=== PATIENT | female | born 1970 | race Caucasian/White ===

== ENCOUNTER → 2019-08-25 14:12 | Outpatient (BNVA) | payer BC, SELFPAY | PROVIDERS: Family Provider Family Medicine; PCP Family Medicine; Visit Provider Nurse Practitioner Family | DX: M54.9 Dorsalgia, unspecified (principal); N39.0 Urinary tract infection, site not specified | CPT/HCPCS: 81003 ==

== ENCOUNTER → 2020-01-09 13:07 | Outpatient (BNVA) | payer BC, SELFPAY | PROVIDERS: Family Provider Family Medicine; PCP Family Medicine; Visit Provider Nurse Practitioner Women's Health | DX: D64.9 Anemia, unspecified (principal); D25.9 Leiomyoma of uterus, unspecified; N93.9 Abnormal uterine and vaginal bleeding, unspecified | CPT/HCPCS: 82728; 82746; 83550; 85025 ==

== ENCOUNTER → 2020-01-12 08:56 | Outpatient (BNVA) | payer BC, SELFPAY | PROVIDERS: Family Provider Family Medicine; PCP Family Medicine; Visit Provider Nurse Practitioner Women's Health | DX: D25.9 Leiomyoma of uterus, unspecified (principal); N88.8 Other specified noninflammatory disorders of cervix uteri | CPT/HCPCS: 76830 ==

== ENCOUNTER 2020-11-12 14:41 | Outpatient (CLI) | payer BC, SELFPAY ==
--- NOTE | 2020-11-12 14:45 | MM_ITS ---
WS: [id number] BILATERAL SCREENING DIGITAL MAMMOGRAM WITH CAD HISTORY: SCREENING COMPARISON: 11/23/2017 and 04/20/2016 Bilateral CC and MLO views submitted. Computer aided detection analyzed. Breast composition: There are scattered areas of fibroglandular density. No suspicious masses, microc alcifications or architectural distortion. MM/[place] [id number] IMPRESSION: BI-RADS: 1-Negative FOLLOW UP: 1 Year Follow-up
== END 2020-11-12 14:42 | disposition home or self-care (01) ==
LOC: RADSHAW 14:44
PROVIDERS: Family Provider Family Medicine; PCP Family Medicine; Visit Provider Family Medicine
DX: Z12.31 Encounter for screening mammogram for malignant neoplasm of breast (principal)
CPT/HCPCS: 77067

== ENCOUNTER 2021-07-08 12:09 | Emergency (ER) | payer OTHER, SELFPAY ==
[2021-07-08 12:10] VITALS: BP 192/114; PULSE 62; RESP 18; TEMP 36.2; O2SAT 100; BMI 29.7
--- NOTE | 2021-07-08 12:34 | ECG_ITS ---
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 Measurements Intervals [place] Rate: 58 P: 2 WI: 162 QRS: 29 QRSD: 83 T: 56 QT: 430 QTc: 425 Interpretive Statements SINUS BRADYCARDIA LEFT VENTRICULAR HYPERTROPHY AND ST-T CHANGE [VOLTAGE CRITERIA PLUS ST/T ABNORMALITY] No previous ECG available for comparison Electronically Signed On 07-08-2021 20:55:34 FUND DIRECTOR by Avelino Richardson M.D. [email or web address] TechSandman D&Rohiohealth mansfield hospitalVital Vio/store/NU/[id number] f
--- NOTE | 2021-07-08 12:34 | XR_ITS ---
WS: [id number] Exam: XR chest 1V portable [id number] Date/Time of Exam: 07/08/2021 12:37 PM Reason For Exam: cp Comparison 09/20/2009. Findings: The lungs are clear and fully expanded. Costophrenic angles are sharp. No infiltrates. Bronchovascula r relief appears normal. Cardiac silhouette is unremarkable. Bony elements are intact. XR/XR chest 1V portable [id number] IMPRESSION: Unremarkable chest radiograph.
--- NOTE | 2021-07-08 12:37 | ED_ITS ---
Documented by User: TEGAN Moe 07/09/21 07:00 HPI - Chest Pain General: Chief Complaint: Chest Pain Stated Complaint: CP WITH HIGH BP Time Seen by Provider: 07/08/21 15:26 History of Present Illness: HPI narrative: Patient states she is having some burning on her mid chest goes up into her throat. Says has been going on since this weekend. She states she also has a cough. Was tested negative for COVID earlier today. Patient says she has a history of hypertension her blood pressures have been staying elevated lately. Patient says she feels very fatigued. Denies any heaviness or pain arm or neck. Does not feel shortness of breath though. States she never had a problem with reflux. Patient is in no acute distress presently. Associated symptoms: Reports abdominal pain; Deny dyspnea, fever(s), nausea or vomiting Review of Systems Const: Denies: fever(s), chills or body aches Eyes: Denies: change in vision or blurry vision ENMT: Denies: throat pain or nasal congestion Card: Reports: chest pain (possible reflux, BPs have been high for a while bottom numbers seems to a h); Denies: irregular heart rhythm or dyspnea on exertion Resp: Denies: dyspnea, productive cough or non-productive cough GI: Reports: abdominal pain; Denies: nausea or vomiting Musc: Denies: extremity pain Skin/Breast: Denies: rash Neuro: Denies: headache(s) Psych: Denies: anxiety or depression Luca/Lymph: Denies: easy bruising PFSH ED PFSH: Medical History (Updated 07/08/21 @ 15:26 by TEGAN Moe) GERD (gastroesophageal reflux disease) Uterine hypertrophy Surgical History (Updated 01/09/20 @ 17:41 by Nithya Raya APN, CHERRI) H/O tubal ligation (1992) History of appendectomy (2009) Family History Family/Other Breast cancer Maternal aunt Colon cancer Maternal aunt History of kidney cancer Maternal aunt Diabetes Paternal aunt Mother Cervical cancer History of kidney cancer Hypertension Father Lung cancer Hypertension Denies family history of Hyperlipidemia Family history of thyroid problem Stroke Social History (Updated 01/09/20 @ 17:44 by Nithya Raya APN, CHERRI) Additional social history: Tobacco use: Denies Alcohol use: Denies Drug use: Denies Female Reproductive History: Date of last menstrual period: 06/14/21 Physical Exam Const: COMMON NORMALS: no acute distress, average body habitus and patient oriented x3 HENMT: COMMON NORMALS: normocephalic HEAD & SCALP: normal to inspection and normocephalic FACE & SINUS: normal facial exam Eye: COMMON NORMALS: conjunctivae normal GENERAL EYE: appearance normal, both eyes and all related structures CONJUNCTIVA: Yes conjunctivae normal Neck/C-Spine: COMMON NORMALS: no JVD Chest: COMMONS NORMALS: normal inspection of the chest Resp: COMMON NORMALS: normal respiratory effort Cardio: COMMON NORMALS: no JVD, regular rate and regular rhythm RATE: regular rate RHYTHM: regular rhythm GI: COMMON NORMALS: Normal to inspection, nondistended, normoactive bowel sounds present Extremity: COMMON NORMALS: normal to inspection and full ROM Neuro: COMMON NORMALS: patient oriented x3 Course Vital Signs: Vital signs: Vital Signs Temperature 97.1 F L 07/08/21 12:10 Pulse Rate 55 L 07/08/21 15:32 Respiratory Rate 16 07/08/21 15:32 Blood Pressure 186/96 07/08/21 15:32 Pulse Oximetry 99 07/08/21 15:32 MDM - Chest Pain MDM Narrative: Medical decision making narrative: Brief history and physical exam was performed as part of the triage process. Due to current ED wait time patient will be placed in waiting room until a room becomes available. Explained to patient he/she will be seen in order of severity. Patient is currently safe to wait in the waiting room until we can get them placed. Patient informed that if condition worsens at any time to please let the front desk representative know. I visited with patient throughout stay in the waiting room. Checked on her hourly. Laboratory studies come back at negative for any concerning findings. EKG was normal. Chest x-ray was normal. Blood pressure came down. GI cocktail was beneficial for discomfort. I discussed with patient her blood pressure readings which was her highest concern. Patient would like to stop hydrochlorothiazide and try another medication for her blood pressure control. Patient will also be started Nexium to help with possible GERD. Patient is looking for a new primary care provider also at this time. I instructed her to follow-up with a primary care provider within the next week or 2 to improve sent readings to them. Also instructed if she had continued chest pain and worsening chest pain that she should return here Lab Data: Labs: Lab Results 07/08/21 07/08/21 07/08/21 14:10 14:10 14:10 WBC 9.7 10^3/uL 10^3/ uL (4.0-10.0) RBC 5.00 10^6/uL 10^6 /uL (4.1-5.3) Hgb 13.6 g/dL g/dL (11.5-15.3) Hct 42.6 % % (37.0-47.0) MCV 85.2 fl fl (81-99) MCH 27.2 pg L pg (28.0-34.0) MCHC 31.9 g/dL g/dL (30.0-36.0) RDW 12.8 % % (12.1-15.1) Plt Count 266 10^3/cmm 10^3 /cmm (130-400) MPV 10.9 fL H fL (7.4-10.4) Neut % (Auto) 62.8 % % Lymph % (Auto) 31.0 % % Tyler % (Auto) 4.5 % % Eos % (Auto) 0.8 % % Baso % (Auto) 0.5 % % Neut # (Auto) 6.09 10^3/uL 10^3 /uL (1.8-7.7) Lymph # (Auto) 3.0 10^3/uL 10^3/ uL (0.8-4.8) Tyler # (Auto) 0.4 10^3/uL 10^3/ uL (0.2-0.9) Eos # (Auto) 0.1 10^3/uL 10^3/ uL (0.0-0.8) Baso # (Auto) 0.1 10^3/uL 10^3/ uL (0.0-0.1) Nucleated RBC % (a uto) 0 % % Nucleated RBCs # 0.0 /100WBC /100W BC PT 12.40 SECONDS SEC ONDS (12.1-14.9) INR 0.90 (0.8-1.2) Sodium 140 mmol/L mmol/L (136-145) Potassium 3.7 mmol/L mmol/L (3.5-5.1) Chloride 102 mmol/L mmol/L (98-107) Carbon Dioxide 26 mmol/L mmol/L (22-29) Anion Gap 15.7 (5-19) BUN 12 mg/dL mg/dL (6-20) Creatinine 0.6 mg/dL mg/dL (0.5-0.9) GFR Calculation 105.8 mL/min mL/m in (90-130) Glucose 92 mg/dL mg/dL (65-115) Calculated Osmolal ity 289 mOsm/kg mOsm/ kg (285-295) Calcium 9.0 mg/dL mg/dL (8.5-10.5) Total Bilirubin 0.4 mg/dL mg/dL (0.15-1.2) AST 14 U/L U/L (0-32) ALT 17 U/L U/L (0-33) Alkaline Phosphata se 119 IU/L H IU/L (35-105) Troponin T Baselin e Total Protein 7.2 g/dL g/dL (6.6-8.7) Albumin 4.6 g/dL g/dL (3.5-5.2) Globulin 2.6 g/dL g/dL (1.3-4.6) 07/08/21 14:10 WBC RBC Hgb Hct MCV MCH MCHC RDW Plt Count MPV Neut % (Auto) Lymph % (Auto) Tyler % (Auto) Eos % (Auto) Baso % (Auto) Neut # (Auto) Lymph # (Auto) Tyler # (Auto) Eos # (Auto) Baso # (Auto) Nucleated RBC % (a uto) Nucleated RBCs # PT INR Sodium Potassium Chloride Carbon Dioxide Anion Gap BUN Creatinine GFR Calculation Glucose Calculated Osmolal ity Calcium Total Bilirubin AST ALT Alkaline Phosphata se Troponin T Baselin e 6 ng/L ng/L (0-10) Total Protein Albumin Globulin Discharge Plan Discharge Patient Disposition: Home Clinical Impression: Atypical chest pain Hypertension Qualifiers: Hypertension type: primary hypertension Qualified Code(s): I10 - Essential (primary) hypertension Condition: Stable Prescriptions: New Micardis 40 mg tablet 40 mg PO DAILY Qty: 30 RF: 0 Tagamet HB 200 mg tablet 200 mg PO BID Qty: 60 RF: 0 No Action metoprolol succinate 100 mg tablet extended release 24 hr 100 mg PO DAILY RF: 0 hydrochlorothiazide 12.5 mg capsule 12.5 mg PO DAILY RF: 0 potassium chloride 10 mEq capsule, extended release 10 meq PO DAILY RF: 0 ferrous sulfate 325 mg (65 mg iron) tablet 325 mg PO DAILY RF: 0 norethindrone acetate 5 mg tablet 5 mg PO DAILY Qty: 90 RF: 1 Discharge Orders: Discharge ED (Routine); Ordered 07/08/21 Ordered By: Rebel Lozoya Referrals: Edilia Vega MD [Primary Care Provider] - Discharge Diet: As Directed Discharge Activity: Increase activity as tolerated Patient Instructions: Chest Pain (ED), GERD (Gastroesophageal Reflux Disease) (ED), Hypertension (ED) Activity Restrictions/Additional Instructions: Follow-up with medical provider as directed. Take medications as prescribed. Return to the ER or your medical provider if condition worsens. Please read and understand discharge instructions. If any questions ask please. I suggest stopping your hydrochlorothiazide and potassium. Check blood pressures twice a day. Stay away from my high-fat greasy diet. Coding Level of Care Code ED Assistant Basketball Coach for Chg Fwd Exam Comprehensive Documented by User: José Mora DO 07/09/21 15:55 HPI - Chest Pain General: Chief Complaint: Chest Pain Stated Complaint: CP WITH HIGH BP Time Seen by Provider: 07/08/21 15:26 [facility] ED PFSH: Medical History (Updated 07/08/21 @ 15:26 by TEGAN Moe) GERD (gastroesophageal reflux disease) Uterine hypertrophy Surgical History (Updated 01/09/20 @ 17:41 by Nithya Raya APN, CHERRI) H/O tubal ligation (1992) History of appendectomy (2009) Family History Family/Other Breast cancer Maternal aunt Colon cancer Maternal aunt History of kidney cancer Maternal aunt Diabetes Paternal aunt Mother Cervical cancer History of kidney cancer Hypertension Father Lung cancer Hypertension Denies family history of Hyperlipidemia Family history of thyroid problem Stroke Social History (Updated 01/09/20 @ 17:44 by Nithya Raya APN, CHERRI) Additional social history: Tobacco use: Denies Alcohol use: Denies Drug use: Denies Course Vital Signs: Vital signs: Vital Signs Temperature 97.1 F L 07/08/21 12:10 Pulse Rate 55 L 07/08/21 15:32 Respiratory Rate 16 07/08/21 15:32 Blood Pressure 186/96 07/08/21 15:32 Pulse Oximetry 99 07/08/21 15:32 MDM - Chest Pain MDM Narrative: Medical decision making narrative: Chart reviewed and patient discussed with midlevel. Agree with assessment and plan. Lab Data: Labs: Lab Results 07/08/21 07/08/21 07/08/21 14:10 14:10 14:10 WBC 9.7 10^3/uL 10^3/ uL (4.0-10.0) RBC 5.00 10^6/uL 10^6 /uL (4.1-5.3) Hgb 13.6 g/dL g/dL (11.5-15.3) Hct 42.6 % % (37.0-47.0) MCV 85.2 fl fl (81-99) MCH 27.2 pg L pg (28.0-34.0) MCHC 31.9 g/dL g/dL (30.0-36.0) RDW 12.8 % % (12.1-15.1) Plt Count 266 10^3/cmm 10^3 /cmm (130-400) MPV 10.9 fL H fL (7.4-10.4) Neut % (Auto) 62.8 % % Lymph % (Auto) 31.0 % % Tyler % (Auto) 4.5 % % Eos % (Auto) 0.8 % % Baso % (Auto) 0.5 % % Neut # (Auto) 6.09 10^3/uL 10^3 /uL (1.8-7.7) Lymph # (Auto) 3.0 10^3/uL 10^3/ uL (0.8-4.8) Tyler # (Auto) 0.4 10^3/uL 10^3/ uL (0.2-0.9) Eos # (Auto) 0.1 10^3/uL 10^3/ uL (0.0-0.8) Baso # (Auto) 0.1 10^3/uL 10^3/ uL (0.0-0.1) Nucleated RBC % (a uto) 0 % % Nucleated RBCs # 0.0 /100WBC /100W BC PT 12.40 SECONDS SEC ONDS (12.1-14.9) INR 0.90 (0.8-1.2) Sodium 140 mmol/L mmol/L (136-145) Potassium 3.7 mmol/L mmol/L (3.5-5.1) Chloride 102 mmol/L mmol/L (98-107) Carbon Dioxide 26 mmol/L mmol/L (22-29) Anion Gap 15.7 (5-19) BUN 12 mg/dL mg/dL (6-20) Creatinine 0.6 mg/dL mg/dL (0.5-0.9) GFR Calculation 105.8 mL/min mL/m in (90-130) Glucose 92 mg/dL mg/dL (65-115) Calculated Osmolal ity 289 mOsm/kg mOsm/ kg (285-295) Calcium 9.0 mg/dL mg/dL (8.5-10.5) Total Bilirubin 0.4 mg/dL mg/dL (0.15-1.2) AST 14 U/L U/L (0-32) ALT 17 U/L U/L (0-33) Alkaline Phosphata se 119 IU/L H IU/L (35-105) Troponin T Baselin e Total Protein 7.2 g/dL g/dL (6.6-8.7) Albumin 4.6 g/dL g/dL (3.5-5.2) Globulin 2.6 g/dL g/dL (1.3-4.6) 07/08/21 14:10 WBC RBC Hgb Hct MCV MCH MCHC RDW Plt Count MPV Neut % (Auto) Lymph % (Auto) Tyler % (Auto) Eos % (Auto) Baso % (Auto) Neut # (Auto) Lymph # (Auto) Tyler # (Auto) Eos # (Auto) Baso # (Auto) Nucleated RBC % (a uto) Nucleated RBCs # PT INR Sodium Potassium Chloride Carbon Dioxide Anion Gap BUN Creatinine GFR Calculation Glucose Calculated Osmolal ity Calcium Total Bilirubin AST ALT Alkaline Phosphata se Troponin T Baselin e 6 ng/L ng/L (0-10) Total Protein Albumin Globulin Discharge Plan Discharge Patient Disposition: Home Clinical Impression: Atypical chest pain Hypertension Qualifiers: Hypertension type: primary hypertension Qualified Code(s): I10 - Essential (primary) hypertension Condition: Stable Prescriptions: New Micardis 40 mg tablet 40 mg PO DAILY Qty: 30 RF: 0 Tagamet HB 200 mg tablet 200 mg PO BID Qty: 60 RF: 0 No Action metoprolol succinate 100 mg tablet extended release 24 hr 100 mg PO DAILY RF: 0 hydrochlorothiazide 12.5 mg capsule 12.5 mg PO DAILY RF: 0 potassium chloride 10 mEq capsule, extended release 10 meq PO DAILY RF: 0 ferrous sulfate 325 mg (65 mg iron) tablet 325 mg PO DAILY RF: 0 norethindrone acetate 5 mg tablet 5 mg PO DAILY Qty: 90 RF: 1 Discharge Orders: Discharge ED (Routine); Ordered 07/08/21 Ordered By: Rebel Lozoya Referrals: Edilia Vega MD [Primary Care Provider] - Discharge Diet: As Directed Discharge Activity: Increase activity as tolerated Patient Instructions: Chest Pain (ED), GERD (Gastroesophageal Reflux Disease) (ED), Hypertension (ED) Activity Restrictions/Additional Instructions: Follow-up with medical provider as directed. Take medications as prescribed. Return to the ER or your medical provider if condition worsens. Please read and understand discharge instructions. If any questions ask please. I suggest stopping your hydrochlorothiazide and potassium. Check blood pressures twice a day. Stay away from my high-fat greasy diet. Coding Level of Care Code ED Assistant Basketball Coach for Chg Fwd Exam Comprehensive
[2021-07-08 14:26] LABS: Basophils # 0.1 10^3/uL (0.0-0.1); Basophils % 0.5 %; Eosinophils # 0.1 10^3/uL (0.0-0.8); Eosinophils % 0.8 %; Hematocrit 42.6 % (37.0-47.0); Hemoglobin 13.6 g/dL (11.5-15.3); Mean Corpuscular HGB Conc 31.9 g/dL (30.0-36.0); Mean Corpuscular Hemoglobin 27.2 pg (28.0-34.0); Mean Corpuscular Volume 85.2 fl (81-99); Mean Platelet Volume 10.9 fL (7.4-10.4); Monocytes # 0.4 10^3/uL (0.2-0.9); Monocytes % 4.5 %; Neutrophils # 6.09 10^3/uL (1.8-7.7); Neutrophils % 62.8 %; Nucleated Red Blood Cells % 0 %; Platelet Count 266 10^3/cmm (130-400); Red Cell Distribution Width 12.8 % (12.1-15.1); White Blood Count 9.7 10^3/uL (4.0-10.0)
[2021-07-08 15:04] LABS: Alanine Aminotransferase 17 U/L (0-33); Albumin Level 4.6 g/dL (3.5-5.2); Alkaline Phosphatase 119 IU/L (35-105); Anion Gap 15.7 (5-19); Aspartate Amino Transferase 14 U/L (0-32); Blood Urea Nitrogen 12 mg/dL (6-20); Carbon Dioxide 26 mmol/L (22-29); Chloride 102 mmol/L (98-107); Globulin 2.6 g/dL (1.3-4.6); Glomerular Filtration Rate 105.8 mL/min (90-130); Glucose 92 mg/dL (65-115); Osmolality Calculated 289 mOsm/kg (285-295); Potassium 3.7 mmol/L (3.5-5.1); Sodium 140 mmol/L (136-145); Total Bilirubin 0.4 mg/dL (0.15-1.2); Total Protein 7.2 g/dL (6.6-8.7)
[2021-07-08 15:05] LABS: Troponin(5th) Baseline 6 ng/L (0-10)
[2021-07-08] MEDS: lidocaine 2% viscous 15 ML, aluminum-mag hydrox-simethicon 30 ML, sucralfate oral liq 1 GM PO (15:17)
[2021-07-08 15:32] VITALS: BP 186/96; PULSE 55; RESP 16; O2SAT 99
== END 2021-07-08 15:52 | disposition home or self-care (01) ==
PROVIDERS: Emergency Provider Nurse Practitioner Family; PCP Family Medicine
DX: R07.89 Other chest pain (principal); I10 Essential (primary) hypertension
CPT/HCPCS: 71045; 80053; 84484; 85025; 85610; 93005; 99283

== ENCOUNTER → 2021-09-08 16:01 | Outpatient (BNVA) | payer OTHER, SELFPAY | PROVIDERS: PCP Nurse Practitioner Family; Visit Provider Nurse Practitioner Family | DX: I10 Essential (primary) hypertension (principal); Z13.1 Encounter for screening for diabetes mellitus | CPT/HCPCS: 80053; 84439; 84443 ==

== ENCOUNTER 2021-09-30 10:35 | Outpatient (CLI) | payer OTHER, SELFPAY ==
--- NOTE | 2021-09-30 11:00 | US_ITS ---
WS: [id number] RENAL ULTRASOUND HISTORY: Hypertension COMPARISON: None available. TECHNIQUE: 2-D and color Doppler imaging of the kidney submitted. Right kidney: 10.0 cm x 5.4 cm x 3.8 cm. Normal echogenicity with no hydronephrosis or mass. Left kidney: 10.0 cm x 4.6 cm x 4.2 cm. Normal echogenicity with no hydronephrosis or mass. Aorta: Normal. Urinary Bladder: Minimal distention. US/US renal BI* [id number] IMPRESSION: Normal renal ultrasound.
== END 2021-09-30 10:36 | disposition home or self-care (01) ==
PROVIDERS: PCP Nurse Practitioner Family; Visit Provider Nurse Practitioner Family
DX: I10 Essential (primary) hypertension (principal)
CPT/HCPCS: 76770

== ENCOUNTER → 2021-11-12 14:26 | Outpatient (BNVA) | payer OTHER, SELFPAY | PROVIDERS: PCP Nurse Practitioner Family; Visit Provider Nurse Practitioner Family | DX: I10 Essential (primary) hypertension (principal); R20.2 Paresthesia of skin; Z13.1 Encounter for screening for diabetes mellitus; D50.9 Iron deficiency anemia, unspecified; Z12.11 Encounter for screening for malignant neoplasm of colon; Z12.4 Encounter for screening for malignant neoplasm of cervix; D64.9 Anemia, unspecified; D25.9 Leiomyoma of uterus, unspecified; N93.9 Abnormal uterine and vaginal bleeding, unspecified | CPT/HCPCS: 80053; 82607; 82728; 82746; 83550; 83735; 85025 ==

== ENCOUNTER 2021-12-08 05:52 | Day surgery (SDC) | payer OTHER, SELFPAY ==
[2021-12-04 11:30] VITALS: BMI 28.7
[2021-12-08 06:45] VITALS: BP 145/89; PULSE 49; RESP 16; TEMP 36.8; O2SAT 98
[2021-12-08] MEDS: sodium chloride 0.9% 1,000 ML 30 ML IV (06:48)
[2021-12-08 06:56] LABS: OR HCG Qualitative Urine Negative (Negative)
--- NOTE | 2021-12-08 06:57 | ANES.PREANE2 ---
Pre-Anesthetic Assessment Height/Weight: Height 1.6 m Weight 73.482 kg Temp Pulse Resp BP Pulse Ox 98.3 F 49 L 16 145/89 98 12/08/21 06:45 12/08/21 06:45 12/08/21 06:45 12/08/21 06:45 12/08/21 06:45 Preop Diagnosis: screening Operation Date: 12/08/21 07:30 Proposed Procedures p Colonoscopy 25424,Z12.11(Not Applicable) - Salvatore Dunn MD Familial anesthetic complications: None Was Beta Shannon taken within 24 hours: Yes Was Clonidine taken within 24 hours: N/A Last intake: Intake Last Liquid Date 12/07/21 Last Liquid Time 22:30 Last Solid Date 12/06/21 Last Solid Time 22:30 Social Alcohol (s) and No tobacco Exam alert, oriented x 3, clear to auscultation bilaterally and regular rate & rhythm Airway Submandibular: within normal limits Cervical ROM: within normal limits Mallampati: Class II Dentition: chipped and full History/ROS Other Pulmonary None reported CV/HEM Anemia and Hypertension None reported Hepatic None reported GI None reported Metabolic None reported Musc/skel None reported Neuropsych Headache Anesthetic Plan Anesthesia: MAC Risk of > 500 ml blood loss (7ml/kg in children): No Medications/Allergies Home Medications Medication Instructions Recorded Confirmed Last Taken Type hydrochlorothiazide 25 mg tablet 12.5 mg PO QAM #30 tab 11/12/21 12/04/21 12/07/21 Rx meloxicam 7.5 mg tablet (Mobic) 7.5 mg PO DAILY #30 tab 11/12/21 12/04/21 Unknown Rx metoprolol succinate 100 mg 100 mg PO DAILY #30 tab 11/12/21 12/08/21 12/08/21 Rx tablet,extended release 24 hr telmisartan 80 mg tablet 80 mg PO BID #60 tab 11/12/21 12/04/21 12/07/21 Rx ferrous gluconate 324 mg (37.5 mg 324 mg PO DAILY #30 tab 11/18/21 12/04/21 12/07/21 Rx iron) tablet Allergies Allergy/AdvReac Type Severity Reaction Status Date / Time No Known Allergies Allergy Verified 09/08/21 14:49 Current Medications Generic Name Dose Route Start Last Admin Trade Name Freq PRN Reason Stop Dose Admin Sodium Chloride 1,000 mls @ 30 mls/hr 12/08/21 06:00 12/08/21 06:48 Sodium Chloride 0.9% IV 12/09/21 05:59 30 mls/hr .Q24H JEANNETTE Administration PFSH Anesthesia Medical History GERD (gastroesophageal reflux disease) Uterine hypertrophy Surgical History H/O tubal ligation (1992) History of appendectomy (2009) Family History Family/Other Breast cancer Maternal aunt Colon cancer Maternal aunt History of kidney cancer Maternal aunt Diabetes Paternal aunt Mother Cervical cancer History of kidney cancer Hypertension Father Lung cancer Hypertension Denies family history of Hyperlipidemia Family history of thyroid problem Stroke Social History Additional social history: Tobacco use: Denies Alcohol use: Denies Drug use: Denies Female Reproductive History Date of last menstrual period: 06/14/21 Data Anesthesia Cardiac Studies: No Data to Display
--- NOTE | 2021-12-08 07:16 | W.PM.OPSFHP ---
Same Day Surgery H&P Indication for Procedure/HPI DATE OF PROCEDURE: December 08, 2021 CHIEF COMPLAINT/INDICATIONFOR SURGICAL PROCEDURE: Screening PREOP DIAGNOSIS: screening PLANNED PROCEDURE: Operation Date: 12/08/21 07:30 Proposed Procedures p Colonoscopy 27316,Z12.11(Not Applicable) - Salvatore Dunn MD Medications/Allergies* Allergies/Adverse Reactions Allergy/AdvReac Type Severity Reaction Status Date / Time No Known Allergies Allergy Verified 09/08/21 14:49 Current Medications: Generic Name Dose Route Start Last Admin Trade Name Freq PRN Reason Stop Dose Admin Sodium Chloride 1,000 mls @ 30 mls/hr 12/08/21 06:00 12/08/21 06:48 Sodium Chloride 0.9% IV 12/09/21 05:59 30 mls/hr .Q24H JEANNETTE Administration Pertinent History/Comorbid Conditions* Medical History (Updated 11/12/21 @ 14:18 by OPAL Weaver) GERD (gastroesophageal reflux disease) Uterine hypertrophy Surgical History (Updated 01/09/20 @ 17:41 by Nithya Raya APN, CHERRI) H/O tubal ligation (1992) History of appendectomy (2009) Family History (Updated 01/09/20 @ 15:51 by Carly Vallejo LPN) Cervical cancer Mother Colon cancer Family/Other Maternal aunt Diabetes Family/Other Paternal aunt History of kidney cancer Family/Other Maternal aunt Mother Breast cancer Family/Other Maternal aunt Lung cancer Father Hypertension Mother Father Denies family history of Hyperlipidemia Family history of thyroid problem Stroke Social History Additional social history: Tobacco use: Denies Alcohol use: Denies Drug use: Denies Pertinent Exam Findings alert, oriented x 3, clear to auscultation bilaterally, regular rate & rhythm, operative site marked and procedure specific exam findings Recommendations Surgery/Procedure today Coding Level of Care Code Acute Quality Measurement Specialist for Mima Serrano
[2021-12-08 08:07] VITALS: BP 113/68; PULSE 58; RESP 18; TEMP 36.3; O2SAT 97
--- NOTE | 2021-12-08 08:08 | ANE.PACU2 ---
Inpatient post-anesthesia follow up: Airway intact: Yes Vital signs: Temperature 98.3 F Pulse Rate 49 Respiratory Rate 16 Blood Pressure 145/89 Pulse Oximetry 98 Oxygen Delivery Me thod Room Air Oxygen Flow Rate Fraction of Inspir ed Oxygen Hydration adequate: Yes Nausea and vomiting: No Pain level: 1 Mental status: Baseline
[2021-12-08 08:18] VITALS: BP 133/69; PULSE 48; RESP 18; O2SAT 99
== END 2021-12-08 08:40 | disposition home or self-care (01) ==
PROVIDERS: Anesthesiology; PCP Nurse Practitioner Family; Visit Provider Internal Medicine
PROC: 0DJD8ZZ Inspection of Lower Intestinal Tract, Via Natural or Artificial Opening Endoscopic (ICD-10-PCS; CPT 45378; principal; 2021-12-08 07:30)
DX: Z12.11 Encounter for screening for malignant neoplasm of colon (principal); K21.9 Gastro-esophageal reflux disease without esophagitis; Z82.49 Family history of ischemic heart disease and other diseases of the circulatory system; Z83.3 Family history of diabetes mellitus; Z80.3 Family history of malignant neoplasm of breast; Z80.52 Family history of malignant neoplasm of bladder; Z80.0 Family history of malignant neoplasm of digestive organs; Z80.1 Family history of malignant neoplasm of trachea, bronchus and lung
CPT/HCPCS: 45378; 84703; J2704; J7030

== ENCOUNTER 2021-12-19 14:23 | Outpatient (CLI) | payer OTHER, SELFPAY ==
--- NOTE | 2021-12-19 14:32 | MM_ITS ---
WS: [id number] BILATERAL SCREENING DIGITAL BREAST TOMOSYNTHESIS MAMMOGRAM WITH CAD HISTORY: Screening COMPARISON: 11/12/2020 and 11/23/2017 Bilateral CC and MLO views with tomosynthesis and synthetic mammography submitted. Computer aided det ection analyzed. Breast composition: There are scattered areas of fibroglandular density. No suspicious masses, microc alcifications or architectural distortion. MM/[place] [id number] IMPRESSION: BI-RADS: 1-Negative FOLLOW UP: 1 Year Follow-up
== END 2021-12-19 14:24 | disposition home or self-care (01) ==
LOC: RAD 14:26
PROVIDERS: PCP Nurse Practitioner Family; Visit Provider Nurse Practitioner Family
DX: Z12.31 Encounter for screening mammogram for malignant neoplasm of breast (principal)
CPT/HCPCS: 77063; 77067

== ENCOUNTER → 2022-07-17 14:41 | Outpatient (BNVA) | payer OTHER, SELFPAY | PROVIDERS: PCP Nurse Practitioner Family; Visit Provider Nurse Practitioner Family | DX: R10.9 Unspecified abdominal pain (principal); N39.0 Urinary tract infection, site not specified | CPT/HCPCS: 81000 ==

== ENCOUNTER 2022-12-18 23:30 | Inpatient (IN) | payer OTHER, SELFPAY ==
[2022-12-18 23:36] VITALS: BP 225/123; PULSE 89; RESP 19; TEMP 37.2; O2SAT 98; BMI 27.4
--- NOTE | 2022-12-18 23:38 | XRR_ITS ---
PROCEDURE INFORMATION: Exam: XR Chest Exam date and time: 12/18/2022 11:45 PM Age: 52 years old Clinical indication: Other: Drug overdose/hypertensive; Patient HX: Drug overdose. Hypertensive over 200 systolic on monitor. TECHNIQUE: Imaging protocol: Radiologic exam of the chest. Views: 1 view. COMPARISON: CR XR chest 1V portable [id number] 07/08/2021 12:43 PM FINDINGS: Lungs: No consolidation. Pleural spaces: Minimal peribronchial cuffing.. No pleural effusion. No pneumothorax. Heart/Mediastinum: The cardiomediastinal silhouette is stable in appearance. No cardiomegaly. Bones/joints: Unremarkable. XR/XR chest 1V portable [id number] IMPRESSION: No new acute findings.
--- NOTE | 2022-12-18 23:38 | W.ED.PSYCHS ---
HPI - Psych General: Chief Complaint: Overdose Stated Complaint: overdose Time Seen by Provider: 12/18/22 23:33 History of Present Illness: Presents to the ER with complaints of drinking 9 beers and taking a handful of 80 mg of telmisartan in an attempt to commit suicide. Upon arrival to the ER patient is alert and oriented and coherent. Patient said her life is falling apart and she had nothing to live for and therefore she drank alcohol and took these pills. Patient took these pills about an hour prior to arrival. Review of Systems General: Reports: 10 or more systems reviewed and unremarkable except in HPI and below PFSH ED PFSH: Medical History GERD (gastroesophageal reflux disease) Uterine hypertrophy Surgical History H/O tubal ligation (1992) History of appendectomy (2009) Family History Family/Other Breast cancer Maternal aunt Colon cancer Maternal aunt History of kidney cancer Maternal aunt Diabetes Paternal aunt Mother Cervical cancer History of kidney cancer Hypertension Father Lung cancer Hypertension Denies family history of Hyperlipidemia Family history of thyroid problem Stroke Social History Additional social history: Tobacco use: Denies Alcohol use: Denies Drug use: Denies Physical Exam Const: COMMON NORMALS: no acute distress, average body habitus, patient oriented x3, no limitations, healthy appearing, alert and well nourished HENMT: COMMON NORMALS: normocephalic, atraumatic, hearing grossly normal bilaterally, external ears normal, Normal external nose present and moist oral mucous membranes HEAD & SCALP: normocephalic and atraumatic NOSE: Normal external nose present EXTERNAL EAR: Yes external ears normal Eye: COMMON NORMALS: Equal, round and reactive pupils present, EOMs intact bilaterally, conjunctivae normal and no scleral icterus CONJUNCTIVA: Yes conjunctivae normal PUPIL: Yes Equal, round and reactive pupils present Neck/C-Spine: COMMON NORMALS: full ROM, no lymphadenopathy, supple, no meningeal signs, no JVD and Thyroid normal THYROID: Thyroid normal Lymph: LYMPHATIC: no lymphadenopathy noted Chest: COMMONS NORMALS: normal inspection of the chest and normal palpation of entire chest wall Resp: COMMON NORMALS: normal respiratory effort, No retractions, No use of accessory muscles and clear to auscultation bilaterally AUSCULTATION: clear to auscultation bilaterally Cardio: COMMON NORMALS: no JVD, regular rate, regular rhythm, S1 normal heart sound present, S2 normal heart sound present, No gallops present (Cardio), No clicks present (Cardio), No murmurs present (Cardio) and No rub (Cardio) RATE: regular rate RHYTHM: regular rhythm HEART SOUNDS: S1 normal heart sound present and S2 normal heart sound present GI: COMMON NORMALS: Normal to inspection, nondistended, normoactive bowel sounds present, Soft to palpation, non-tender, No hepatosplenomegaly present and no masses PALPATION: Yes Soft to palpation and Yes No hepatosplenomegaly present : COMMON NORMALS: Yes no CVA tenderness BLADDER/KIDNEY EXAM: Yes no CVA tenderness Back/Pelvis: COMMON NORMALS: no CVA tenderness Neuro: COMMON NORMALS: patient oriented x3 SENSORIUM/ORIENTATION: Yes alert MENINGEAL SIGNS: Yes no meningeal signs Psych: COMMON NORMALS: Normal thought process present and speech normal APPEARANCE: Yes grossly normal ACTIVITY/MOTOR BEHAVIOR: Yes appropriate eye contact SPEECH: Yes normal speech MOOD & AFFECT: Yes depressed mood and Yes tearful THOUGHT PROCESS: Normal thought process present THOUGHT CONTENT: Yes Suicidality present ATTENTION/CONCENTRATION: Yes attention grossly intact and Yes concentration grossly intact Course Vital Signs: Vital signs: Vital Signs Temperature 98.9 F 12/18/22 23:36 Pulse Rate 84 12/19/22 00:24 Respiratory Rate 19 H 12/18/22 23:36 Blood Pressure 183/123 12/19/22 00:24 Pulse Oximetry 95 12/19/22 00:24 Oxygen Delivery Me thod Room Air 12/19/22 00:24 MDM - Psych Medical Decision Making Patient minimally took a handful of telmisartan after drinking 9 beers. In an attempt to take her own life. Upon arrival to the ER patient's blood pressure was hypertensive not hypotensive normal psychiatric work-up was obtained. Due to the potential of overdose which is questionable at this moment patient will be admitted to the ICU. Dr. Puckett was consulted and agreed for inpatient admission to the ICU for further evaluation and treatment until cleared for the psychiatric unit. Differential Diagnosis Likely suicidal ideation and depression; Unlikely acute psychosis, chronic schizophrenia, bipolar disorder, drug-induced psychotic disorder or acute anxiety Medical Records I reviewed the patient's medical records. Lab Data I reviewed the patient's lab results. 12/18/22 23:51 12/18/22 23:51 Radiology Impressions Chest X-Ray 12/18/22 23:38 IMPRESSION: No new acute findings. Laboratory Results WBC 8.8 10^3/uL (4.0-10.0) 12/18/22 23:51 RBC 4.98 10^6/uL (4.1-5.3) 12/18/22 23:51 Hgb 13.4 g/dL (11.5-15.3) 12/18/22 23:51 Hct 41.9 % (37.0-47.0) 12/18/22 23:51 MCV 84.1 fl (81-99) 12/18/22 23:51 MCH 26.9 pg (28.0-34.0) L 12/18/22 23:51 MCHC 32.0 g/dL (30.0-36.0) 12/18/22 23:51 RDW 13.3 % (12.1-15.1) 12/18/22 23:51 Plt Count 250 10^3/cmm (130-400) 12/18/22 23:51 MPV 10.3 fL (7.4-10.4) 12/18/22 23:51 Neut % (Auto) 54.9 % 12/18/22 23:51 Lymph % (Auto) 38.5 % 12/18/22 23:51 Bradley % (Auto) 4.6 % 12/18/22 23:51 Eos % (Auto) 1.0 % 12/18/22 23:51 Baso % (Auto) 0.8 % 12/18/22 23:51 Neut # (Auto) 4.83 10^3/uL (1.8-7.7) 12/18/22 23:51 Lymph # (Auto) 3.4 10^3/uL (0.8-4.8) 12/18/22 23:51 Bradley # (Auto) 0.4 10^3/uL (0.2-0.9) 12/18/22 23:51 Eos # (Auto) 0.1 10^3/uL (0.0-0.8) 12/18/22 23:51 Baso # (Auto) 0.1 10^3/uL (0.0-0.1) 12/18/22 23:51 Nucleated RBC % (auto) 0 % 12/18/22 23:51 Nucleated RBCs # 0.0 /100WBC 12/18/22 23:51 Sodium 140 mmol/L (136-145) 12/18/22 23:51 Potassium 3.5 mmol/L (3.5-5.1) 12/18/22 23:51 Chloride 103 mmol/L (98-107) 12/18/22 23:51 Carbon Dioxide 29 mmol/L (22-29) 12/18/22 23:51 Anion Gap 11.5 (5-19) 12/18/22 23:51 BUN 6 mg/dL (6-20) 12/18/22 23:51 Creatinine 0.5 mg/dL (0.5-0.9) 12/18/22 23:51 GFR Calculation 130.1 mL/min (90-130) H 12/18/22 23:51 Glucose 107 mg/dL (65-115) 12/18/22 23:51 Calculated Osmolality 288 mOsm/kg (285-295) 12/18/22 23:51 Calcium 8.8 mg/dL (8.5-10.5) 12/18/22 23:51 Total Bilirubin 0.3 mg/dL (0.15-1.2) 12/18/22 23:51 AST 13 U/L (0-32) 12/18/22 23:51 ALT 12 U/L (0-33) 12/18/22 23:51 Alkaline Phosphatase 104 U/L (35-105) 12/18/22 23:51 Total Protein 7.7 g/dL (6.6-8.7) 12/18/22 23:51 Albumin 4.8 g/dL (3.5-5.2) 12/18/22 23:51 Globulin 2.9 g/dL (1.3-4.6) 12/18/22 23:51 HCG, Qual Negative (Negative) 12/18/22 23:45 Urine Color Colorless (Yellow) 12/18/22 23:45 Urine Appearance Clear (CLEAR) 12/18/22 23:45 Urine pH 7 (5-7) 12/18/22 23:45 Ur Specific [place] 1.005 (1.005-1.030) 12/18/22 23:45 Urine Protein Neg (Negative) 12/18/22 23:45 Urine Glucose (UA) Norm (Normal) 12/18/22 23:45 Urine Ketones Negative (Negative) 12/18/22 23:45 Urine Blood Neg (Negative) 12/18/22 23:45 Urine Nitrate Negative (Negative) 12/18/22 23:45 Urine Bilirubin Neg (Negative) 12/18/22 23:45 Urine Urobilinogen Norm mg/dL (Negative) 12/18/22 23:45 Ur Leukocyte Esterase Negative (Negative) 12/18/22 23:45 Salicylates < 0.3 mg/dL (3-10) L 12/18/22 23:51 Urine Opiates Screen Negative ng/mL (Negative) 12/18/22 23:45 Acetaminophen < 5.0 ug/mL (10-30) L 12/18/22 23:51 Ur Barbiturates Screen Negative ng/mL (Negative) 12/18/22 23:45 Ur Phencyclidine Scrn Negative ng/mL (Negative) 12/18/22 23:45 Ur Amphetamines Screen Negative ng/mL (Negative) 12/18/22 23:45 U Benzodiazepines Scrn Negative ng/mL (Negative) 12/18/22 23:45 Urine Cocaine Screen Negative ng/mL (Negative) 12/18/22 23:45 U Marijuana (THC) Screen Negative ng/mL (Negative) 12/18/22 23:45 Ethyl Alcohol 213 mg/dL (0-10) H 12/18/22 23:51 Discharge Plan Discharge Patient Disposition: Admitted As Inpatient Clinical Impression: Drug overdose, Alcohol intoxication, Suicide attempt Condition: Stable Prescriptions: No Action cephalexin 500 mg capsule 500 mg PO BID 7 Days Qty: 14 0RF hydrochlorothiazide 25 mg tablet 12.5 mg PO QAM Qty: 90 3RF meloxicam 7.5 mg tablet 7.5 mg PO DAILY Qty: 90 3RF metoprolol succinate 100 mg tablet extended release 24 hr 100 mg PO DAILY Qty: 90 3RF telmisartan 80 mg tablet 80 mg PO BID Qty: 180 3RF Referrals: Swathi Jamison, COMMUNICATIONS INSTRUCTOR-C [Primary Care Provider] - Coding Level of Care Code ED Agronomy Teacher for Mima Serrano
--- NOTE | 2022-12-18 23:40 | ECG_ITS ---
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 Measurements Intervals Graham Rate: 68 P: 1 OK: 158 QRS: 37 QRSD: 90 T: 76 QT: 405 QTc: 433 Interpretive Statements SINUS RHYTHM NONSPECIFIC ST & T-WAVE ABNORMALITY Compared to ECG 07/08/2021 12:17:08 T-wave abnormality now present Sinus bradycardia no longer present Left ventricular hypertrophy no longer present ST (T wave) deviation no longer present Electronically Signed On 12-19-2022 6:01:21 CDT by Bennett Olvera M.D. [email or web address]
[2022-12-18 23:49] LABS: Add Urine Microscopic? NO; Charge for UA Resulting for Rev
[2022-12-18 23:56] LABS: HCG Qualitative Urine. Negative (Negative)
[2022-12-18 23:57] LABS: Bilirubin Urine Neg (Negative); Blood Urine Neg (Negative); Glucose Urine UA Norm (Normal); Ketones Urine Negative (Negative); Leukocyte Esterase Urine Negative (Negative); Nitrate Urine Negative (Negative); Protein Urine Neg (Negative); Specific Gravity, Urine 1.005 (1.005-1.030); Urine Appearance Clear (CLEAR); Urine Color Colorless (Yellow); Urobilinogen Urine Norm (Negative); pH Urine 7 (5-7)
[2022-12-19] VITALS (20 sets, daily range): BP systolic 101–198; BP diastolic 65–123; PULSE 61–102; RESP 16–25; TEMP 36.6–36.8; O2SAT 94–100; BMI 27.4
[2022-12-19] MEDS: sodium chloride 0.9% 1,000 ML 999 ML IV (00:02)
[2022-12-19 00:04] LABS: Basophils # 0.1 10^3/uL (0.0-0.1); Basophils % 0.8 %; Eosinophils # 0.1 10^3/uL (0.0-0.8); Hematocrit 41.9 % (37.0-47.0); Hemoglobin 13.4 g/dL (11.5-15.3); Lymphocytes # 3.4 10^3/uL (0.8-4.8); Lymphocytes % 38.5 %; Mean Corpuscular Hemoglobin 26.9 pg (28.0-34.0); Mean Corpuscular Volume 84.1 fl (81-99); Mean Platelet Volume 10.3 fL (7.4-10.4); Monocytes # 0.4 10^3/uL (0.2-0.9); Monocytes % 4.6 %; Neutrophils # 4.83 10^3/uL (1.8-7.7); Neutrophils % 54.9 %; Nucleated Red Blood Cells % 0 %; Platelet Count 250 10^3/cmm (130-400); Red Blood Count 4.98 10^6/uL (4.1-5.3); Red Cell Distribution Width 13.3 % (12.1-15.1); White Blood Count 8.8 10^3/uL (4.0-10.0)
[2022-12-19 00:04] LABS: Amphetamines Screen Urine Negative (Negative); Barbiturates Screen Urine Negative (Negative); Benzodiazepines Screen Urine Negative (Negative); Cocaine Screen Urine Negative (Negative); Opiate Screen Urine Negative (Negative); PCP Screen Urine Negative (Negative); THC Screen Urine Negative (Negative)
[2022-12-19 00:25] LABS: Alanine Aminotransferase 12 U/L (0-33); Albumin Level 4.8 g/dL (3.5-5.2); Alcohol Level 213 mg/dL (0-10); Alkaline Phosphatase 104 U/L (35-105); Anion Gap 11.5 (5-19); Aspartate Amino Transferase 13 U/L (0-32); Blood Urea Nitrogen 6 mg/dL (6-20); Calcium 8.8 mg/dL (8.5-10.5); Carbon Dioxide 29 mmol/L (22-29); Chloride 103 mmol/L (98-107); Globulin 2.9 g/dL (1.3-4.6); Glomerular Filtration Rate 130.1 mL/min (90-130); Glucose 107 mg/dL (65-115); Osmolality Calculated 288 mOsm/kg (285-295); Potassium 3.5 mmol/L (3.5-5.1); Sodium 140 mmol/L (136-145); Total Bilirubin 0.3 mg/dL (0.15-1.2); Total Protein 7.7 g/dL (6.6-8.7)
[2022-12-19 00:27] LABS: Acetaminophen < 5.0 ug/mL (10-30); Salicylate < 0.3 mg/dL (3-10)
--- NOTE | 2022-12-19 01:25 | PM.HP ---
Providers/Chief Complaint Admitting Physician: Italo Primary Care Provider: OPAL Weaver Chief Complaint: overdose History of Present Illness Steph Michel is a 52 year old female felt like there was no hope so she drank 8 beers and took a handful of telmisartan in a suicide attempt. She reports that her ex- just and her boyfriend broke up with her. She felt like she had no hope. She denies any chest pain shortness of breath nausea vomiting constipation or diarrhea. She is just very depressed. Review of Systems Const: Denies: fever(s) or chills Eyes: Denies: change in vision ENMT: Denies: throat pain or nasal congestion Card: Denies: chest pain or palpitations Resp: Denies: dyspnea or productive cough GI: Denies: abdominal pain, nausea, vomiting or change in stool character : Denies: dysuria Musc: Denies: back pain or extremity pain Skin/Breast: Denies: rash or lesions Neuro: Denies: headache(s) or dizziness Psych: Reports: depression; Denies: anxiety Luca/Lymph: Denies: easy bruising or easy bleeding Medications/Allergies Home Medications Medication Instructions Recorded Confirmed Last Taken Type hydrochlorothiazide 25 mg tablet 12.5 mg PO QAM #90 tabs 12/24/21 07/17/22 Unknown Rx meloxicam 7.5 mg tablet 7.5 mg PO DAILY #90 tabs 12/24/21 07/17/22 Unknown Rx metoprolol succinate 100 mg 100 mg PO DAILY #90 tabs 12/24/21 07/17/22 Unknown Rx tablet,extended release 24 hr telmisartan 80 mg tablet 80 mg PO BID #180 tabs 12/24/21 07/17/22 Unknown Rx cephalexin 500 mg capsule 500 mg PO BID 7 days #14 caps 07/17/22 07/17/22 Unknown Rx Allergies Allergy/AdvReac Type Severity Reaction Status Date / Time No Known Allergies Allergy Verified 07/17/22 14:28 PFSH Acute PFSH: Medical History GERD (gastroesophageal reflux disease) Uterine hypertrophy Surgical History H/O tubal ligation (1992) History of appendectomy (2009) Family History Family/Other Breast cancer Maternal aunt Colon cancer Maternal aunt History of kidney cancer Maternal aunt Diabetes Paternal aunt Mother Cervical cancer History of kidney cancer Hypertension Father Lung cancer Hypertension Denies family history of Hyperlipidemia Family history of thyroid problem Stroke Social History Additional social history: Tobacco use: Denies Alcohol use: Denies Drug use: Denies Vitals/I&O/Wt Last Vital Signs Temp 98.9 F 12/18/22 23:36 Pulse 84 12/19/22 00:24 Resp 19 H 12/18/22 23:36 BP 183/123 12/19/22 00:24 Pulse Ox 95 12/19/22 00:24 O2 Del Method Room Air 12/19/22 00:24 Weight last 48 hrs Weight 72.575 kg Physical Exam Narrative: Patient is alert oriented to person place time and situation. She is well-hydrated well-nourished Neuro: Nonfocal HEENT: Normocephalic atraumatic pupils equal round reactive to light and accommodation extraocular muscles intact no scleral icterus. Nasal and pharyngeal mucosa moist and pink without lesions or exudates. Neck supple no JVD carotid bruits or lymphadenopathy Heart normal S1-S2 without murmurs clicks gallops or rubs Lungs clear to auscultation without wheezes rales or rhonchi Abdomen soft nontender nondistended normal active bowel sounds no hepatosplenomegaly Extremities no clubbing cyanosis or edema Skin without lesions or exudates Back: No scoliosis no CVA tenderness Data 12/18/22 23:51 12/18/22 23:51 A&P Assessment and plan (1) Suicide attempt: Patient admits to suicide attempt. Will ask for psych consult after medical stabilization Suicide precautions with one-to-one sitter (2) Alcohol intoxication: Patient denies drinking daily. She states that she had 8 or 9 beers tonight. Qualifiers: Complication of substance-induced condition: uncomplicated Qualified Code(s): F10.920 - Alcohol use, unspecified with intoxication, uncomplicated (3) Drug overdose: Patient states she took a handful of telmisartan; however, her blood pressure is elevated she is not experiencing typical side effects. Qualifiers: Encounter type: initial encounter Injury intent: intentional self-harm Qualified Code(s): T50.902A - Poisoning by unspecified drugs, medicaments and biological substances, intentional self-harm, initial encounter (4) Hypertension: Will hold telmisartan at this time. I will continue metoprolol due to the severity of hypertension at this time. Hold hydrochlorothiazide Qualifiers: Hypertension type: primary hypertension Qualified Code(s): I10 - Essential (primary) hypertension Attestations Medical Necessity Statement*: Patient with suicide attempts needs medical stabilization and psychiatric hospitalization. Will likely cross 2 midnights Coding Level of Care Code Acute Code for [facility] Fwd Diagnoses Suicide attempt T14.91XA Alcohol intoxication F10.920 Complication of substance-induced condition: uncomplicated Drug overdose T50.902A Encounter type: initial encounter Injury intent: intentional self-harm Hypertension I10 Hypertension type: primary hypertension
[2022-12-19] MEDS: sodium chloride 0.9% 1,000 ML 75 ML IV (03:42)
[2022-12-19 04:53] LABS: Anion Gap 11.9 (5-19); Blood Urea Nitrogen 6 mg/dL (6-20); Calcium 8.3 mg/dL (8.5-10.5); Carbon Dioxide 28 mmol/L (22-29); Chloride 112 mmol/L (98-107); Glomerular Filtration Rate 130.1 mL/min (90-130); Glucose 106 mg/dL (65-115); Osmolality Calculated 304 mOsm/kg (285-295); Potassium 3.9 mmol/L (3.5-5.1); Sodium 148 mmol/L (136-145)
--- NOTE | 2022-12-19 06:47 | PC.NURSE ---
Pt home prescription in Pyxis.
--- NOTE | 2022-12-19 08:33 | PC.PHAR ---
pt states she takes care of her own medications-pt states she takes her prescription medications prn-ext med history shows hctz 12.5mg qam filled 09/13/22 30d/s pt states takes prn-metoprolol succinate er 100mg daily filled 09/13/22 30d/s pt states she takes prn-ext med history shows telmisartan 80mg bid filled 09/14/22 30d/s pt states she only takes 80mg daily prn-notes are made in the pharmacy comments
[2022-12-19] MEDS: hyDRALAzine 20 mg/mL INJ 1 mL 10 MG IVP (10:17)
[2022-12-19] MEDS: metoprolol succinate ER (24 HR) 100 mg Tablet PO (10:18)
[2022-12-19] MEDS: meloxicam 7.5 mg tablet PO (10:18)
--- NOTE | 2022-12-19 12:04 | W.PM.EVENTAC ---
Event Note Event Note: This morning patient is hypertensive Awake and alert Endorsing suicidal ideation She will go to psych unit Hemodynamically stable For her hypertension I will give her hydralazine 10 mg IV push I will optimize her antihypertensive regimen I will keep following along in NPU She does not need ICU management today No active chest pain shortness of breath Not endorsing amphetamine or cocaine, drinks alcohol occasionally
--- NOTE | 2022-12-19 12:35 | P.NPUHP_ITS ---
Providers/Chief Complaint Admitting Physician: Franky Puckett DO Primary Care Provider: OPAL Weaver Chief Complaint: overdose HPI NPU History of Present Illness Steph Michel is a 52 year old female who reports no previous inpatient or outpatient treatment psychiatrically who was brought to the emergency department for further evaluation after she had imbibed 8 drinks of alcohol and taken approximately 10 pills of telmisartan in her bathroom. She reports that she simply wanted to lower her blood pressure but reports that she understood the potential danger of taking the 2 together. She was admitted to the neuropsychiatric unit for further evaluation and treatment. She reports that she has been more depressed for approximately 2 weeks. She endorses occasional suicidal thoughts. She reported no plan. She states that she had been talking with her daughter yesterday and decided that she wanted to go to the bathroom at which time she had overdosed on the pills. She endorses feeling more sad and endorses a general sense of purposeless over the past few weeks. She endorses that she has been isolating herself and crying more frequently. She reports that she often feels as if she is not rested when she wakes up in reports fe eling tired when she awakens. She endorses low energy and reports a decrease in appetite. She endorses some feelings of hopelessness. She endorses some diminished ability to concentrate. She denies any history of anne-marie nor does she endorse any past history of psychosis. She reports infrequent use of alcohol with no reports of routine alcohol use. She denies any history of alcohol related withdrawal. Her blood alcohol level was 213 on admission. She denies any history of chronic anxiety. She denies any past history of depression. She does report that her boyfriend of 3 years had broken up with her 1 month ago. She also reports a trigger for her worsening mood has been the of her ex- on August 19, 2022. Psychiatric history: None reported Medical history: Hypertension, iron deficiency anemia, uterine fibroids Allergies: No known drug allergies Surgical history: Appendectomy, tubal ligation Medications: Hydrochlorothiazide, telmisartan, vitamin B complex Legal history: None history: None Drug and alcohol history: Reports occasional alcohol use, no history of drug and alcohol treatment. No history of illicit drug use. Social history: The patient was born in [place] raised by her biological parents. She had 4 brothers and 4 sisters. She had dropped out of the 10th grade to get . She has been twice with her second marriage lasting 21 years with a recent divorce 2 years ago. She had reported no problems with learning. She had had not received her GED. She reports that she lives with her daughter in [facility]. She had been living with her now ex-boyfriend for 3 years prior to a break-up 1 month ago. She denied any history of sexual physical or emotional abuse during her childhood or adulthood. She reports having 2 adult children her son 32 and her daughter 30 from 2 previous marriages. 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 She reports no family history of psychiatric illness other than reported alcoholism in the biological father. Meds NPU Home Medications Medication Instructions Recorded Confirmed Last Taken Type albuterol sulfate 90 mcg/actuation 1 puff inhalation QID PRN 12/19/22 12/19/22 Unknown History aerosol inhaler Shortness Of Breath hydrochlorothiazide 25 mg tablet 12.5 mg PO DAILY PRN Edema 12/19/22 12/19/22 Unknown History ibuprofen 200 mg tablet 800 mg PO Q6H PRN Pain 12/19/22 12/19/22 Unknown History metoprolol succinate 100 mg 100 mg PO DAILY PRN Blood Pressure 12/19/22 12/19/22 Unknown History tablet,extended release 24 hr telmisartan 80 mg tablet 80 mg PO DAILY PRN Blood Pressure 12/19/22 12/19/22 Unknown History vitamin B complex 1 tab PO DAILY 12/19/22 12/19/22 Unknown History Allergies Allergy/AdvReac Type Severity Reaction Status Date / Time No Known Allergies Allergy Verified 12/19/22 08:32 [facility] NPU PFS: Medical History GERD (gastroesophageal reflux disease) Uterine hypertrophy Surgical History H/O tubal ligation (1992) History of appendectomy (2009) Family History Family/Other Breast cancer Maternal aunt Colon cancer Maternal aunt History of kidney cancer Maternal aunt Diabetes Paternal aunt Mother Cervical cancer History of kidney cancer Hypertension Father Lung cancer Hypertension Denies family history of Hyperlipidemia Family history of thyroid problem Stroke Social History Additional social history: Tobacco use: Denies Alcohol use: Denies Drug use: Denies Mental Status Exam MSE Comments: She is a casually dressed white female who appeared her stated age he was alert and oriented to person place time and situation. There was evidence of moderate psychomotor retardation. She was tearful on interview. Her gait was within normal limits. There is no evidence of any tics or tremors appreciated. Her speech was normal in regards to rate rhythm and prosody. Her thought process was linear logical and goal-directed. Her thought content showed no evidence c urrently of active homicidal or suicidal ideation. She had acknowledged the potential dangerousness of the overdose. She did not appear to be responding to internal stimuli. There was no evidence of delusional thinking. Her mood was described as depressed. Her affect is restricted in range and mood-congruent. Her recent and remote memory were grossly intact. Her attention span appeared fair. Her insight is poor. Her judgment was poor. Her impulse control appeared limited at this time. Vitals/I&O/Wt Last Vital Signs Temp 98.2 F 12/19/22 12:12 Pulse 66 12/19/22 12:12 Resp 16 12/19/22 12:12 BP 175/91 12/19/22 12:12 Pulse Ox 100 12/19/22 12:12 O2 Del Method Room Air 12/19/22 12:00 12/18/22 12/19/22 12/19/22 22:59 06:59 14:59 Intake Total 1000 / 1000 Balance 1000 / 1000 Weight last 48 hrs Weight 72.575 kg Data NPU 12/18/22 23:51 12/19/22 04:15 A&P Assessment and plan (1) Major depressive disorder, single episode, severe: (2) Suicide attempt: (3) Drug overdose: Qualifiers: Encounter type: initial encounter Injury intent: intentional self-harm Qualified Code(s): T50.902A - Poisoning by unspecified drugs, medicaments and biological substances, intentional self-harm, initial encounter (4) Iron deficiency anemia: (5) Anemia: (6) Hypertension: Qualifiers: Hypertension type: primary hypertension Qualified Code(s): I10 - Essential (primary) hypertension Plan This is a 52-year-old female with no reported history of depression reporting depressed mood over the past 2 weeks admitted with an overdose on her med ications in the context of alcohol use along with recent stressors including a break-up with a steady relationship and the of an ex-. 1.? ?Engage? patient in individual ,milieu, and group therapy 2. ? We will attempt to gather collateral information from previous providers 3. ? TO-15 minute checks on the unit. ? 4.? Recommend sober living treatment at the highest level of care to which the patient is willing to commit. 5. Initiate Prozac 20mg daily to target depression. Attestations NPU Medical Necessity Statement*: Inpatient hospitalization is medically necessary and deemed to be the clinically appropriate intervention at this time. We will monitor and initiate medications while making changes as indicated. She will be in the hospital for over 2 midnights. Her likely length of stay is 3 to 5 days. Coding Level of Care Code Acute Code for [facility] Diagnoses Major depressive disorder, single episode, severe F32.2 Suicide attempt T14.91XA Drug overdose T50.902A Encounter type: initial encounter Injury intent: intentional self-harm Iron deficiency anemia D50.9 Anemia D64.9 Hypertension I10 Hypertension type: primary hypertension
[2022-12-19] MEDS: cloNIDine 0.1 mg Tablet 0.2 MG PO (14:52)
--- NOTE | 2022-12-19 15:59 | PC.NURSE ---
BP at 1557 126/86.
[2022-12-19] MEDS: amlodipine 10 mg Tablet PO (17:07)
[2022-12-19] MEDS: chlorthalidone 25 mg Tablet 12.5 MG PO (17:07)
--- NOTE | 2022-12-19 17:09 | PC.NURSE ---
Administered patient'samlodipine and chlorthalidone late because I gave patient 0.2mg clonidine, per Dr. Tucker's order. Waited to see how patient would react before giving her two more medications for hypertention. BP 126/86 at last check.
[2022-12-19] MEDS: lisinopril 20 mg Tablet PO (18:26)
[2022-12-20 06:00] VITALS: BP 102/65; PULSE 63; RESP 18; TEMP 36.4; O2SAT 99
[2022-12-20] MEDS: amlodipine 10 mg Tablet PO (08:44)
[2022-12-20] MEDS: chlorthalidone 25 mg Tablet 12.5 MG PO (08:45)
[2022-12-20] MEDS: fluoxetine 20 mg Capsule PO (08:45)
[2022-12-20] MEDS: lisinopril 20 mg Tablet PO ×2 (08:46→20:50)
[2022-12-20] MEDS: metoprolol succinate ER (24 HR) 100 mg Tablet PO (09:03)
[2022-12-20 09:09] VITALS: BP 110/70
--- NOTE | 2022-12-20 09:11 | PC.NURSE ---
refused scheduled Mobic, vitamin B-1, folic acid, multivitamin this morning
[2022-12-20 09:23] LABS: Blood Urea Nitrogen 15 mg/dL (6-20); Calcium 9.4 mg/dL (8.5-10.5); Carbon Dioxide 24 mmol/L (22-29); Chloride 108 mmol/L (98-107); Glomerular Filtration Rate 88.2 mL/min (90-130); Glucose 124 mg/dL (65-115); Osmolality Calculated 294 mOsm/kg (285-295); Sodium 141 mmol/L (136-145)
[2022-12-20 09:39] LABS: Anion Gap 13.2 (5-19); Potassium 4.2 mmol/L (3.5-5.1)
--- NOTE | 2022-12-20 15:37 | P.NPUPN_ITS ---
Subjective NPU Subjective: 52-year-old white female admitted with an overdose on alcohol and telmisartan with suicidal intention. She had minimized any thoughts of hurting herself today. She reported that she had felt better today. She reported that she had been depressed for about 3 weeks with significant social stressors. She reported increased feelings of hopelessness over the past 3 weeks but stated that she had improved sleep last night. She had acknowledged having consumed alcohol but states use intermittently and stated that she had a relatively high tolerance with a family history of alcohol dependence. She reported no past history of psychotherapy. She was cooperative and redirectable on the milieu. She reported adequate appetite and reported desire to resume work soon. Mental Status Exam MSE Comments: She is a casually dressed white female who appeared her stated age he was alert and oriented to person place time and situation. There was evidence of mild psychomotor retardation. Her gait was within normal limits. There is no evidence of any tics or tremors appreciated. Her speech was normal in regards to rate rhythm and prosody. Her thought process was linear logical and goal-dir ected. Her thought content showed no evidence currently of active homicidal or suicidal ideation. She had acknowledged the potential dangerousness of the overdose. She did not appear to be responding to internal stimuli. There was no evidence of delusional thinking. Her mood was described as better. Her affect remained restricted in range and mood incongruent. Her recent and remote memory were grossly intact. Her attention span appeared fair. Her insight is poor. Her judgment was poor. Her impulse control appeared limited at this time. Vitals/I&O/Wt Last Vital Signs Temp 97.5 F L 12/20/22 06:00 Pulse 63 12/20/22 06:00 Resp 18 12/20/22 06:00 BP 110/70 12/20/22 09:09 Pulse Ox 99 12/20/22 06:00 O2 Del Method Room Air 12/20/22 09:09 Weight last 48 hrs Weight 72.575 kg Weight 72.575 kg Data NPU 12/18/22 23:51 12/20/22 08:39 A&P Assessment and plan (1) Major depressive disorder, single episode, severe: (2) Suicide attempt: (3) Drug overdose: Qualifiers: Encounter type: initial encounter Injury intent: intentional self-harm Qualified Code(s): T50 - Poisoning by unspecified drugs, medicaments and biological substances, intentional self-harm, initial encounter (4) Iron deficiency anemia: (5) Anemia: (6) Hypertension: Qualifiers: Hypertension type: primary hypertension Qualified Code(s): I10 - Essential (primary) hypertension Plan This is a 52-year-old female with no reported history of depression reporting depressed mood over the past 2 weeks admitted with an overdose on her medications in the context of alcohol use along with recent stressors including a break-up with a steady relationship and the of an ex-. 1.? ?Engage? patient in individual ,milieu, and group therapy 2. ? We will attempt to gather collateral information from previous providers 3. ? TO-15 minute checks on the unit. ? 4.? Recommend sober living treatment at the highest level of care to which the patient is willing to commit. 5. Continue Prozac 20mg daily to target depression. Involuntary Hold Information 96 Hour Hold: 96 Hour Involuntary Admission: No Attestations NPU Medical Necessity Statement*: Inpatient hospitalization is medically necessary and deemed to be the clinically appropriate intervention at this time. We will monitor and initiate medications while making changes as indicated. Her likely length of stay is 3 to 5 days. Coding Level of Care Code Acute Code for [facility] Diagnoses Major depressive disorder, single episode, severe F32.2 Suicide attempt T14.91XA Drug overdose T5. Encounter type: initial encounter Injury intent: intentional self-harm Iron deficiency anemia D50.9 Anemia D64.9 Hypertension I10 Hypertension type: primary hypertension
[2022-12-20] MEDS: nicotine 4 mg lozenge MUCOUS MEM (18:47)
[2022-12-20 21:32] VITALS: BP 121/75; PULSE 50; RESP 18; TEMP 36.7; O2SAT 98
[2022-12-21 06:00] VITALS: BP 126/82; PULSE 50; RESP 16; TEMP 36.8; O2SAT 100
[2022-12-21 10:09] LABS: Anion Gap 12.1 (5-19); Blood Urea Nitrogen 14 mg/dL (6-20); Calcium 9.9 mg/dL (8.5-10.5); Carbon Dioxide 27 mmol/L (22-29); Chloride 103 mmol/L (98-107); Glomerular Filtration Rate 88.2 mL/min (90-130); Glucose 94 mg/dL (65-115); Osmolality Calculated 286 mOsm/kg (285-295); Potassium 4.1 mmol/L (3.5-5.1); Sodium 138 mmol/L (136-145)
[2022-12-21] MEDS: amlodipine 10 mg Tablet PO (10:11)
[2022-12-21] MEDS: lisinopril 20 mg Tablet PO (10:11)
[2022-12-21] MEDS: meloxicam 7.5 mg tablet PO (10:11)
[2022-12-21] MEDS: chlorthalidone 25 mg Tablet 12.5 MG PO (10:12)
[2022-12-21] MEDS: multivitamin therapeutic Tablet 1 TAB PO (10:12)
[2022-12-21] MEDS: folic acid 1 mg Tablet PO (10:12)
[2022-12-21] MEDS: fluoxetine 20 mg Capsule PO (10:12)
[2022-12-21] MEDS: thiamine 100 mg Tablet PO (10:12)
[2022-12-21] MEDS: metoprolol succinate ER (24 HR) 100 mg Tablet PO (10:16)
[2022-12-21 14:16] VITALS: BP 126/82; PULSE 50; RESP 16; TEMP 36.8; O2SAT 100
--- NOTE | 2022-12-21 15:19 | PC.NURSE ---
written discharge instruction discussed and left with patient. pt stating understanding and compliance. pt left via family friend pov.
--- NOTE | 2022-12-21 17:19 | W.PM.NPUDCS ---
Diagnoses at Discharge Discharge Diagnosis (1) Major depressive disorder, single episode, severe: Status: Acute (2) Suicide attempt: Status: Resolved (3) Drug overdose: Status: Inactive Qualifiers: Encounter type: initial encounter Injury intent: intentional self-harm Qualified Code(s): T50.902A - Poisoning by unspecified drugs, medicaments and biological substances, intentional self-harm, initial encounter Permanent problem details: intentional (4) Iron deficiency anemia: Status: Acute (5) Anemia: Status: Acute (6) Hypertension: Status: Acute Qualifiers: Hypertension type: primary hypertension Qualified Code(s): I10 - Essential (primary) hypertension Reason for Visit Reason for Visit: overdose Brief History: History of Present Illness Steph Michel is a 52 year old female who reports no previous inpatient or outpatient treatment psychiatrically who was brought to the emergency department for further evaluation after she had imbibed 8 drinks of alcohol and taken approximately 10 pills of? telmisartan in her bathroom.? She reports that she simply wanted to lower her blood pressure but reports that she understood the potential danger of taking the 2 together.? She was admitted to the neuropsychiatric unit for further evaluation and treatment.? She reports that she has been more depressed for approximately 2 weeks.? She endorses occasional suicidal thoughts.? She reported no plan.? She states that she had been talking with her daughter yesterday and decided that she wanted to go to the bathroom at which time she had overdosed on the pills.? She endorses feeling more sad and endorses a general sense of purposeless over the past few weeks.? She endorses that she has been isolating herself and crying more frequently.? She reports that she often feels as if she is not rested when she wakes up in reports feeling tired when she awakens.? She endorses low energy and reports a decrease in appetite.? She endorses some feelings of hopelessness.? She endorses some diminished ability to concentrate. She denies any history of anne-marie nor does she endorse any past history of psychosis.? She reports infrequent use of alcohol with no reports of routine alcohol use.? She denies any history of alcohol related withdrawal.? Her blood alcohol level was 213 on admission.? She denies any history of chronic anxiety.? She denies any past history of depression.? She does report that her boyfriend of 3 years had broken up with her 1 month ago.? She also reports a trigger for her worsening mood has been the of her ex- on August 19, 2022. Psychiatric history: None reported Medical history: Hypertension, iron deficiency anemia, uterine fibroids Allergies: No known drug allergies Surgical history: Appendectomy, tubal ligation Medications: Hydrochlorothiazide, telmisartan, vitamin B complex Legal history: None history: None Drug and alcohol history: Reports occasional alcohol use, no history of drug and alcohol treatment.? No history of illicit drug use. Social history: The patient was born in [place] raised by her biological parents.? She had 4 brothers and 4 sisters.? She had dropped out of the 10th grade to get .? She has been twice with her second marriage lasting 21 years with a recent divorce 2 years ago.? She had reported no problems with learning.? She had had not received her GED.? She reports that she lives with her daughter in [facility].? She had been living with her now ex-boyfriend for 3 years prior to a break-up 1 month ago.? She denied any history of sexual physical or emotional abuse during her childhood or adulthood.? She reports having 2 adult children her son 32 and her daughter 30 from 2 previous marriages.? 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 She reports no family history of psychiatric illness other than reported alcoholism in the biological father. Hospital Course Hospital Course At the time of discharge, lethality was denied and psychosis was resolving.? Mood and anxiety were well managed.? The patient endorsed a plan to avoid all drugs of abuse and follow up with the aftercare recommendations of the treatment team.? The patient was evaluated and deemed to be absent credible lethality and had achieved the maximum benefit from an inpatient hospitalization, and so was discharged.? Involuntary Hold Information 96 Hour Hold: 96 Hour Involuntary Admission: No Mental Status Exam MSE Comments: She is a casually dressed white female who appeared her stated age he was alert and oriented to person place time and situation. There was no evidence of psychomotor retardation. Her gait was within normal limits. There is no evidence of any tics or tremors appreciated. Her speech was normal in regards to rate rhythm and prosody. Her thought process was linear logical and goal-directed. Her thought content showed no evidence currently of active homicidal or suicidal ideation. She did not appear to be responding to internal stimuli. There was no evidence of delusional thinking. Her mood was described as better. Her affect was brighter on discharge. Her recent and remote memory were grossly intact. Her attention span appeared fair. Her insight is was improved. Her judgment was adequate. Her impulse control appeared improved. Discharge Data Studies Completed and Pending: Completed Studies During Hospitalization Category Date Time Status XR chest 1V johnny ble [id number] Stat Exams 12/18/22 23:38 Completed Radiology Impressions Chest X-Ray 12/18/22 23:38 IMPRESSION: No new acute findings. Laboratory Results WBC 8.8 10^3/uL (4.0- 10.0) 12/18/22 23:51 RBC 4.98 10^6/uL (4.1 -5.3) 12/18/22 23:51 Hgb 13.4 g/dL (11.5-1 5.3) 12/18/22 23:51 Hct 41.9 % (37.0-47.0 ) 12/18/22 23:51 MCV 84.1 fl (81-99) 12/18/22 23:51 MCH 26.9 pg (28.0-34. 0) L 12/18/22 23:51 MCHC 32.0 g/dL (30.0-3 6.0) 12/18/22 23:51 RDW 13.3 % (12.1-15.1 ) 12/18/22 23:51 Plt Count 250 10^3/cmm (130 -400) 12/18/22 23:51 MPV 10.3 fL (7.4-10.4 ) 12/18/22 23:51 Neut % (Auto) 54.9 % 12/18/22 23:51 Lymph % (Auto) 38.5 % 12/18/22 23:51 Pondera % (Auto) 4.6 % 12/18/22 23:51 Eos % (Auto) 1.0 % 12/18/22 23:51 Baso % (Auto) 0.8 % 12/18/22 23:51 Neut # (Auto) 4.83 10^3/uL (1.8 -7.7) 12/18/22 23:51 Lymph # (Auto) 3.4 10^3/uL (0.8- 4.8) 12/18/22 23:51 P[place]a # (Auto) 0.4 10^3/uL (0.2- 0.9) 12/18/22 23:51 Eos # (Auto) 0.1 10^3/uL (0.0- 0.8) 12/18/22 23:51 Baso # (Auto) 0.1 10^3/uL (0.0- 0.1) 12/18/22 23:51 Nucleated RBC % (a uto) 0 % 12/18/22 23:51 Nucleated RBCs # 0.0 /100WBC 12/18/22 23:51 Sodium 138 mmol/L (136-1 45) 12/21/22 09:36 Potassium 4.1 mmol/L (3.5-5 .1) 12/21/22 09:36 Chloride 103 mmol/L (98-10 7) 12/21/22 09:36 Carbon Dioxide 27 mmol/L (22-29) 12/21/22 09:36 Anion Gap 12.1 (5-19) 12/21/22 09:36 BUN 14 mg/dL (6-20) 12/21/22 09:36 Creatinine 0.7 mg/dL (0.5-0. 9) 12/21/22 09:36 GFR Calculation 88.2 mL/min (90-1 30) L 12/21/22 09:36 Glucose 94 mg/dL (65-115) 12/21/22 09:36 Calculated Osmolal ity 286 mOsm/kg (285- 295) 12/21/22 09:36 Calcium 9.9 mg/dL (8.5-10 .5) 12/21/22 09:36 Total Bilirubin 0.3 mg/dL (0.15-1 .2) 12/18/22 23:51 AST 13 U/L (0-32) 12/18/22 23:51 ALT 12 U/L (0-33) 12/18/22 23:51 Alkaline Phosphata se 104 U/L (35-105) 12/18/22 23:51 Total Protein 7.7 g/dL (6.6-8.7 ) 12/18/22 23:51 Albumin 4.8 g/dL (3.5-5.2 ) 12/18/22 23:51 Globulin 2.9 g/dL (1.3-4.6 ) 12/18/22 23:51 HCG, Qual Negative (Negati ve) 12/18/22 23:45 Urine Color Colorless (Yello w) 12/18/22 23:45 Urine Appearance Clear (CLEAR) 12/18/22 23:45 Urine pH 7 (5-7) 12/18/22 23:45 Ur Specific Gravit y 1.005 (1.005-1.0 30) 12/18/22 23:45 Urine Protein Neg (Negative) 12/18/22 23:45 Urine Glucose (UA) Norm (Normal) 12/18/22 23:45 Urine Ketones Negative (Negati ve) 12/18/22 23:45 Urine Blood Neg (Negative) 12/18/22 23:45 Urine Nitrate Negative (Negati ve) 12/18/22 23:45 Urine Bilirubin Neg (Negative) 12/18/22 23:45 Urine Urobilinogen Norm mg/dL (Negat richard) 12/18/22 23:45 Ur Leukocyte Cindy ase Negative (Negati ve) 12/18/22 23:45 Salicylates < 0.3 mg/dL (3-10 ) L 12/18/22 23:51 Urine Opiates Scre en Negative ng/mL (N egative) 12/18/22 23:45 Acetaminophen < 5.0 ug/mL (10-3 0) L 12/18/22 23:51 Ur Barbiturates Sc reen Negative ng/mL (N egative) 12/18/22 23:45 Ur Phencyclidine S crn Negative ng/mL (N egative) 12/18/22 23:45 Ur Amphetamines Sc reen Negative ng/mL (N egative) 12/18/22 23:45 U Benzodiazepines Scrn Negative ng/mL (N egative) 12/18/22 23:45 Urine Cocaine Scre en Negative ng/mL (N egative) 12/18/22 23:45 U Marijuana (THC) Screen Negative ng/mL (N egative) 12/18/22 23:45 Ethyl Alcohol 213 mg/dL (0-10) H 12/18/22 23:51 Vitals: Last Vital Signs Temp 98.2 F 12/21/22 14:16 Pulse 50 L 12/21/22 14:16 Resp 16 12/21/22 14:16 BP 126/82 12/21/22 14:16 Pulse Ox 100 12/21/22 14:16 O2 Del Method Room Air 12/21/22 06:00 Discharge Plan Discharge Patient Disposition: Home Condition: Stable Prescriptions: New amlodipine 10 mg Tablet 10 mg PO DAILY Qty: 30 1RF fluoxetine 20 mg Capsule 40 mg PO DAILY 30 Days Qty: 60 1RF Continued metoprolol succinate 100 mg tablet extended release 24 hr 100 mg PO DAILY PRN (Reason: Blood Pressure) telmisartan 80 mg tablet 80 mg PO DAILY PRN (Reason: Blood Pressure) ibuprofen 200 mg Tablet 800 mg PO Q6H PRN (Reason: Pain) vitamin B complex Tablet 1 tab PO DAILY hydrochlorothiazide 25 mg tablet 12.5 mg PO DAILY PRN (Reason: Edema) albuterol sulfate 90 mcg/actuation HFA aerosol inhaler 1 puff INHALATION QID PRN (Reason: Shortness Of Breath) Discharge Orders: Discharge Order (Routine); Ordered 12/21/22 Ordered By: Gonzalo Tucker Referrals: [facility] [Outside] - 7-10 days ([facility] not open on this date due to holiday. Can walk in from 7:30 am to 3:00 pm Wednesday through Wednesday. ) Dylan Guzman MD [Physician] - 01/05/23 8:15 am (Hospital follow up) Discharge Diet: Usual diet Discharge Activity: Increase activity as tolerated Patient Instructions: Depression (DC), Help Prevent Suicide (DC), Help Prevent Suicide in Older Adults (DC), Suicide Prevention (DC), Opioid Safety Discharge Attestations NPU Time Spent in Discharge Care*: less than 30 min Specific Discharge Activities: Specific discharge activities: educating patient and documenting/other paperwork Coding Level of Care Code Acute Chg FW DC note Diagnoses Major depressive disorder, single episode, severe F32.2 Suicide attempt T14.91XA Drug overdose T50.902A Encounter type: initial encounter Injury intent: intentional self-harm Iron deficiency anemia D50.9 Anemia D64.9 Hypertension I10 Hypertension type: primary hypertension
--- NOTE | 2023-01-03 13:31 | PC.NURSE ---
HOME MED: Telmisartan 80mg home med was in the pyxis. Called patient and [phone] let message requesting a call back and a time she could come picking tech her home med.
== END 2022-12-21 15:18 | disposition home or self-care (01) | DRG 918 ==
LOC: ER 12-19 00:58 → ICU 12-19 01:35 → NP 12-19 11:45
PROVIDERS: Internal Medicine; Admitting Provider Internal Medicine; Emergency Provider Emergency Medicine; PCP Nurse Practitioner Family; Visit Provider Psychiatry & Neurology Psychiatry
DX: T46.5X2A Poisoning by other antihypertensive drugs, intentional self-harm, initial encounter (principal); F32.2 Major depressive disorder, single episode, severe without psychotic features; R45.851 Suicidal ideations; F10.129 Alcohol abuse with intoxication, unspecified; Y90.7 Blood alcohol level of 200-239 mg/100 ml; F43.20 Adjustment disorder, unspecified; Z63.0 Problems in relationship with spouse or partner; K21.9 Gastro-esophageal reflux disease without esophagitis; F17.200 Nicotine dependence, unspecified, uncomplicated; I10 Essential (primary) hypertension; Z81.1 Family history of alcohol abuse and dependence; D50.9 Iron deficiency anemia, unspecified
CPT/HCPCS: 36415; 71045; 80048; 80053; 80306; 80307; 81003; 81025; 85025; 93005; 97165; 99238; 99285; J0360; J7030

== ENCOUNTER 2023-02-12 14:40 | Outpatient (CLI) | payer OTHER, SELFPAY ==
--- NOTE | 2023-02-12 15:01 | MM_ITS ---
WS: [id number] BILATERAL 3D TOMOSYNTHESIS DIGITAL SCREENING MAMMOGRAPHY WITH CAD CLINICAL INFORMATION: MMG screening HISTORY: Screening mammogram. No current complaints. COMPARISON: 2018 TECHNIQUE: Bilateral CC and MLO views. FINDINGS: Scattered fibroglandular densities bilaterally. No suspicious focal mass, asymmetry, calcifications, or architectural distortion. No evidence of malignancy. Incidental punctate calcifications. IMPRESSION: MM/[place] [id number] BI-RADS: 2-Benign FOLLOW UP: 1 Year Follow-up Recommend return to annual screening mammography.
== END 2023-02-12 14:41 | disposition home or self-care (01) ==
LOC: RAD 14:43
PROVIDERS: PCP Family Medicine; Visit Provider Family Medicine
DX: Z12.31 Encounter for screening mammogram for malignant neoplasm of breast (principal)
CPT/HCPCS: 77063; 77067

== ENCOUNTER → 2023-06-28 14:18 | Outpatient (BNVA) | payer OTHER, SELFPAY | PROVIDERS: PCP Family Medicine; Visit Provider Family Medicine | DX: R39.9 Unspecified symptoms and signs involving the genitourinary system (principal); E86.0 Dehydration; I10 Essential (primary) hypertension; F32.2 Major depressive disorder, single episode, severe without psychotic features; F10.21 Alcohol dependence, in remission; F17.200 Nicotine dependence, unspecified, uncomplicated | CPT/HCPCS: 81000 ==

== ENCOUNTER → 2023-07-08 16:25 | Outpatient (BNVA) | payer OTHER, SELFPAY | PROVIDERS: PCP Family Medicine; Visit Provider Family Medicine | DX: N84.1 Polyp of cervix uteri (principal); Z01.419 Encounter for gynecological examination (general) (routine) without abnormal findings | CPT/HCPCS: 87624 ==

== ENCOUNTER → 2023-08-16 13:38 | Outpatient (BNVA) | payer OTHER, SELFPAY | PROVIDERS: PCP Family Medicine; Visit Provider Obstetrics & Gynecology | DX: N84.1 Polyp of cervix uteri (principal) | CPT/HCPCS: 76830 ==

== ENCOUNTER 2023-08-25 08:38 | Day surgery (SDC) | payer OTHER, SELFPAY ==
[2023-08-24 08:27] LABS: Basophils # 0.1 10^3/uL (0.0-0.1); Basophils % 0.6 %; Eosinophils # 0.1 10^3/uL (0.0-0.8); Eosinophils % 1.6 %; Hematocrit 40.2 % (36-47); Lymphocytes # 2.4 10^3/uL (0.8-4.8); Lymphocytes % 29.9 %; Mean Corpuscular HGB Conc 31.8 g/dL (30-55); Mean Corpuscular Hemoglobin 27.4 pg (27-33); Mean Corpuscular Volume 86.1 fl (85-98); Mean Platelet Volume 10.4 fL (7.4-10.4); Monocytes # 0.5 10^3/uL (0.2-0.9); Monocytes % 6.3 %; Neutrophils # 4.99 10^3/uL (1.8-7.7); Neutrophils % 61.4 %; Nucleated Red Blood Cells % 0 %; Platelet Count 239 10^3/cmm (157-399); Red Blood Count 4.67 10^6/uL (3.85-5.65); White Blood Count 8.13 10^3/uL (3.29-11.43)
[2023-08-24 08:44] LABS: Add Urine Microscopic? YES; Bilirubin Urine Neg (Negative); Blood Urine 2+ (Negative); Glucose Urine UA Norm (Normal); Ketones Urine Negative (Negative); Leukocyte Esterase Urine 2+ (Negative); Nitrate Urine Negative (Negative); Protein Urine Neg (Negative); Urine Appearance Hazy (CLEAR); Urine Color Yellow (Yellow); Urobilinogen Urine Norm (Negative); pH Urine 5 (5-7)
--- NOTE | 2023-08-24 08:49 | ANES.PREANE2 ---
Pre-Anesthetic Assessment Height/Weight: Height 1.63 m Operation Date: 08/25/23 10:10 Proposed Procedures p Hysteroscopy, dilation and curettage with Myosure 11208,26866 N84.1(Not Applicable) - Alan Kelly MD s Dilation And Curettage (D&C)(Not Applicable) - Alan Kelly MD Social No alcohol and No tobacco Exam alert, oriented x 3, clear to auscultation bilaterally and regular rate & rhythm Airway Submandibular: within normal limits Cervical ROM: within normal limits Mallampati: Class I Dentition: partials and full GI None reported Anesthetic Plan ASA status: 2 Anesthesia: General Risk of > 500 ml blood loss (7ml/kg in children): No Medications/Allergies Home Medications Medication Instructions Recorded Confirmed Last Taken Type ibuprofen 200 mg tablet 800 mg PO Q6H PRN Pain 12/19/22 08/24/23 Unknown History vitamin B complex 1 tab PO DAILY PRN prn 12/19/22 08/24/23 Unknown History amlodipine 10 mg tablet 10 mg PO .qhs #90 tabs 02/24/23 08/24/23 08/23/23 Rx hydrochlorothiazide 25 mg tablet 12.5 mg (1/2 x 25 mg) PO QAM Edema 02/24/23 08/24/23 08/24/23 Rx #45 tabs metoprolol succinate 100 mg 100 mg PO .qhs PRN Blood Pressure 02/24/23 08/24/23 08/23/23 Rx tablet,extended release 24 hr #90 tabs telmisartan 80 mg tablet 80 mg PO QAM PRN Blood Pressure 02/24/23 08/24/23 08/24/23 Rx #90 tabs Allergies Allergy/AdvReac Type Severity Reaction Status Date / Time No Known Allergies Allergy Verified 08/24/23 08:09 [facility] Anesthesia Medical History Major depressive disorder, single episode, severe Drug overdose intentional Iron deficiency anemia Uterine hypertrophy GERD (gastroesophageal reflux disease) Abnormal uterine bleeding (AUB) Uterine fibroid Surgical History H/O tubal ligation (1992) History of appendectomy (2009) Family History (Updated 08/12/23 @ 13:53 by Anna Hough LPN) Family/Other Breast cancer Maternal aunt Colon cancer Maternal aunt History of kidney cancer Maternal aunt Diabetes Paternal aunt Mother Cervical cancer History of kidney cancer Hypertension Father Lung cancer Hypertension Other Lung disease Denies family history of Ovarian cancer Prostate cancer Heart disease Psychiatric illness Thyroid disease Stroke Data Anesthesia 08/24/23 08:05 08/24/23 08:05 Short CBC 08/24/23 Range/Units 08:05 WBC 8.13 (3.29-11.43) 10^3/uL Hgb 12.80 (11.27-16.99) g/dL Hct 40.2 (36-47) % MCV 86.1 (85-98) fl Plt Count 239 (157-399) 10^3/cmm Neut % (Auto) 61.4 % Neut # (Auto) 4.99 (1.8-7.7) 10^3/uL Urine 08/24/23 Range/Units 08:05 Urine Color Yellow (Yellow) Urine Appearance Hazy A (CLEAR) Urine pH 5 (5-7) Ur Specific K[place]haw 1.030 (1.005-1.030) Urine Protein Neg (Negative) Urine Glucose (UA) Norm (Normal) Urine Ketones Negative (Negative) Urine Nitrate Negative (Negative) Urine Bilirubin Neg (Negative) Ur Leukocyte Esterase 2+ H (Negative) Cardiac Studies: No Data to Display
[2023-08-24 08:51] LABS: RBC Urine RARE /hpf (0-2)
[2023-08-24 08:52] LABS: Add Urine Culture? Yes; Bacteria Urine TRACE /hpf; Mucus Urine TRACE /hpf; Transitional Epi Cells Urine 0-4 /hpf; WBC Urine 15-25 /hpf (0-5)
[2023-08-24 08:57] LABS: Alanine Aminotransferase 13 U/L (0-33); Albumin Level 4.2 g/dL (3.5-5.2); Alkaline Phosphatase 92 U/L (35-105); Anion Gap 14.9 (5-19); Aspartate Amino Transferase 12 U/L (0-32); Blood Urea Nitrogen 16 mg/dL (6-20); Calcium 8.9 mg/dL (8.5-10.5); Carbon Dioxide 26 mmol/L (22-29); Chloride 103 mmol/L (98-107); Globulin 3.2 g/dL (1.3-4.6); Glucose 122 mg/dL (65-115); Osmolality Calculated 292 mOsm/kg (285-295); Potassium 3.9 mmol/L (3.5-5.1); Sodium 140 mmol/L (136-145); Total Bilirubin 0.5 mg/dL (0.15-1.2); Total Protein 7.4 g/dL (6.6-8.7)
[2023-08-25] VITALS (10 sets, daily range): BP systolic 90–151; BP diastolic 53–92; PULSE 55–69; RESP 14–22; TEMP 36.1–36.6; O2SAT 59–99; BMI 29.2
[2023-08-25 08:48] LABS: OR HCG Qualitative Urine Negative (Negative)
--- NOTE | 2023-08-25 09:12 | P.ANESUD_ITS ---
Pre-Anesthetic Update Pre-Anesthetic Assessment: Date of Surgery/Procedure: 08/25/23 Preop Constance gnosis: Endocervical polyp, endometrial polyp Proposed Procedure: Operation Date: 08/25/23 10:10 Proposed Procedures p Hysteroscopy, dilation and curettage with Myosure [id number] N84.1(Not Applicable) - Alan Kelly MD s Dilation And Curettage (D&C)(Not Applicable) - Alan Kelly MD Last Intake: Intake Last Liquid Date 08/24/23 Last Liquid Time 20:30 Last Solid Date 08/24/23 Last Solid Time 20:30 Labs Last 48hrs: Short CBC 08/24/23 Range/Units 08:05 WBC 8.13 (3.29-11.43) 10^ 3/uL Hgb 12.80 (11.27-16.99) g/ dL Hct 40.2 (36-47) % MCV 86.1 (85-98) fl Plt Count 239 (157-399) 10^3/c mm Neut % (Auto) 61.4 % Neut # (Auto) 4.99 (1.8-7.7) 10^3/u L BMP 08/24/23 08:05 Sodium 140 Potassium 3.9 Chloride 103 Carbon Dioxide 26 BUN 16 Creatinine 0.6 Glucose 122 H Calcium 8.9 Liver Function 08/24/23 Range/Units 08:05 Total Bilirubin 0.5 (0.15-1.2) mg/dL AST 12 (0-32) U/L ALT 13 (0-33) U/L Alkaline Phosphata se 92 (35-105) U/L Albumin 4.2 (3.5-5.2) g/dL Urine 08/24/23 Range/Units 08:05 Urine Color Yellow (Yellow) Urine Appearance Hazy A (CLEAR) Urine pH 5 (5-7) Ur Specific Gravit y 1.030 (1.005-1.030) Urine Protein Neg (Negative) Urine Glucose (UA) Norm (Normal) Urine Ketones Negative (Negative) Urine Nitrate Negative (Negative) Urine Bilirubin Neg (Negative) Ur Leukocyte Cindy ase 2+ H (Negative) Urine RBC Rare (0-2) /hpf Urine WBC 15-25 H (0-5) /hpf Vitals: Temperature 97.6 F 08/25/23 08:49 Temperature Source Temporal Artery S can 08/25/23 08:49 Pulse Rate 69 08/25/23 08:49 Pulse Rhythm Regular 08/25/23 08:56 Pulse Strength 3+ Normal 08/25/23 08:56 Respiratory Rate 16 08/25/23 08:49 Blood Pressure 151/90 08/25/23 08:49 Blood Pressure Shanta n 110 08/25/23 08:49 Pulse Oximetry 99 08/25/23 08:49 Oxygen Delivery Me thod Room Air 08/25/23 08:56 Exam: Pre-Anes Outpt Exam: alert, oriented x 3, clear to auscultation bilaterally and regular rate & rhythm Cardiac Studies: No Data to Display
[2023-08-25] MEDS: sodium chloride 0.9% 500 ML IV (09:26)
--- NOTE | 2023-08-25 09:29 | W.PM.OPSUD ---
Surgery/Procedure H&P Update DATE OF PROCEDURE: August 25, 2023 DATE H&P PERFORMED: 08/12/23 H&P UPDATE INFORMATION: I have reviewed H&P completed within last 30 days, I have examined patient prior to procedure and No changes to prior documentation PREOP DIAGNOSIS: Endocervical polyp, endometrial polyp PLANNED PROCEDURE: Operation Date: 08/25/23 10:10 Proposed Procedures p Hysteroscopy, dilation and curettage with Myosure [id number] N84.1(Not Applicable) - Alan Kelly MD s Dilation And Curettage (D&C)(Not Applicable) - Alan Kelly MD
[2023-08-25] MEDS: sodium chloride 0.9% 1,000 ML 30 ML IV (10:04)
[2023-08-25] MEDS: ceFAZolin 2,000 MG in sodium chloride 0.9% (plus) 50 ML 100 MG IV (10:06)
[2023-08-25] MEDS: lidocaine-epi 2% PF 1:200,000 20 mL SDV XX (10:39)
--- NOTE | 2023-08-25 10:56 | PM.OP ---
Operative Report Date of procedure: August 25, 2023 Pre-op diagnosis: Endocervical polyp Post-op diagnosis: same Post-op diagnosis: Endocervical polyp Endometrial polyp Procedure done: Hysteroscopy with dilation and curettage via MyoSure Hysteroscopic polypectomy Specimens removed/disposition: Endocervical polyp Endometrial curettings with endometrial polyp Surgeon: Alan Kelly MD Estimated blood loss (mL): 5 IV fluids (mL): 500 Complications: None Findings: Endocervical polyp Endometrial polyp Procedure: After informed consent, the risks included but were not limited to bleeding, infection, injury to internal organs. The patient was counseled on a possible laparotomy and on the potential need for hysterectomy. The patient expressed understanding of the risks involved, all questions were answered, and the patient consented to the procedure. The patient was taken to the operating room where general anesthesia was administered. She was placed in the dorsal lithotomy position and prepped and draped in sterile fashion. A time out procedure was performed. The patient was examined under anesthesia and found to have a normal uterus with normal adnexa. A sterile weight speculum was placed in the vagina. The uterus was then gently sounded to 7 cm, and the cervix was dilated. The 0 degrees MyoSure hysteroscope was advanced gently to the uterine fundus while visualizing the monitor. Survey of the uterine cavity showed: A pedunculated endocervical polyp, the fundus shows atrophic endometrium with endometrial polyp; left ostium was visualized, and lateral wall with atrophic endometrium; right ostium visualized, and lateral wall with atrophic in the mid; anterior and posterior judd are with atrophic endometrium; endocervical canal with endocervical polyp. The MyoSure device was advanced and the direct visualization the endometrium and polyp were morcellated without complication. At the end of morcellation the fluid deficit was 350 mL and was estimated at approximately 200 mL were on the floor. There was minimal bleeding noted and the tenaculum removed with goad hemostasis noted. The patient tolerated the procedure well. The patient was taken to the recovery area in stable condition.
--- NOTE | 2023-08-25 15:07 | ANE.PACU2 ---
Inpatient post-anesthesia follow up: Vital signs: Temperature 97.9 F Pulse Rate 59 Respiratory Rate 16 Blood Pressure 132/92 Pulse Oximetry 59 Oxygen Delivery Me thod Room Air Oxygen Flow Rate 6 Fraction of Inspir ed Oxygen Nausea and vomiting: No Mental status: Baseline Additional Comments: no apparent anesthetic complications noted
== END 2023-08-25 12:10 | disposition home or self-care (01) ==
PROVIDERS: PCP Family Medicine; Visit Provider Obstetrics & Gynecology
PROC: 0UDB8ZZ Extraction of Endometrium, Via Natural or Artificial Opening Endoscopic (ICD-10-PCS; CPT 58558; principal; 2023-08-25 10:00)
PROC: (CPT 58120; 2023-08-25 10:00)
DX: N84.0 Polyp of corpus uteri (principal); K21.9 Gastro-esophageal reflux disease without esophagitis; F17.290 Nicotine dependence, other tobacco product, uncomplicated
CPT/HCPCS: 58558; 36415; 80053; 81001; 81025; 84703; 85025; 86850; 86900; 87086; 88305; J0690; J1100; J2250; J2405; J2704; J3010; J7030; J7040

== ENCOUNTER → 2023-09-17 14:14 | Outpatient (BNVA) | payer OTHER, SELFPAY | PROVIDERS: PCP Family Medicine; Visit Provider Nurse Practitioner Women's Health | DX: N91.2 Amenorrhea, unspecified | CPT/HCPCS: 82670; 83001; 84146; 84443 ==

== ENCOUNTER 2024-02-22 09:01 | Observation (INO) | payer OTHER, SELFPAY ==
[2024-02-14 13:59] LABS: Basophils # 0.1 10^3/uL (0.0-0.1); Basophils % 0.6 %; Eosinophils # 0.2 10^3/uL (0.0-0.8); Eosinophils % 2.4 %; Hematocrit 37.7 % (36-47); Lymphocytes # 2.1 10^3/uL (0.8-4.8); Lymphocytes % 21.9 %; Mean Corpuscular HGB Conc 32.4 g/dL (30-55); Mean Corpuscular Hemoglobin 27.7 pg (27-33); Mean Corpuscular Volume 85.7 fl (85-98); Mean Platelet Volume 10.3 fL (7.4-10.4); Monocytes # 0.6 10^3/uL (0.2-0.9); Monocytes % 5.6 %; Neutrophils # 6.72 10^3/uL (1.8-7.7); Nucleated Red Blood Cells % 0 %; Platelet Count 227 10^3/cmm (157-399); Red Cell Distribution Width 13.6 % (12.1-15.1); White Blood Count 9.75 10^3/uL (3.29-11.43)
--- NOTE | 2024-02-14 14:14 | P.ANESASSM_ITS ---
Pre-Anesthetic Assessment Height/Weight: Height 1.6 m Preop Diagnosis: uterine fibroid, cystocele, stress urinary incontinence Operation Date: 02/22/24 09:20 Proposed Procedures p Total Vaginal Hysterectomy 59760, 74484, 02143, N81.10, N39.3(Not Applicable) - Alan Kelly MD s Salpingo-Oophorectomy (Vaginal)(Bilateral) - Alan Kelly MD s Anterior Repair Anterior Colporrhaphy(Not Applicable) - Alan Kelly MD s Sling Single Incision Sling(Not Applicable) - Alan Kelly MD Familial anesthetic complications: None Was Beta Shannon taken within 24 hours: N/A Was Clonidine taken within 24 hours: N/A Last intake: > 8hrs Social No alcohol and No tobacco hx ETOH Exam alert, oriented x 3, clear to auscultation bilaterally and regular rate & rhythm Airway Mallampati: Class II Dentition: chipped, false and partials CV/HEM Hypertension Neuropsych Depression Anesthetic Plan ASA status: 2 Anesthesia: General Risk of > 500 ml blood loss (7ml/kg in children): No Medications/Allergies Home Medications Medication Instructions Recorded Confirmed Last Taken Type amlodipine 10 mg tablet 10 mg PO .qhs #90 tabs 02/24/23 02/14/24 02/13/24 Rx hydrochlorothiazide 25 mg tablet 12.5 mg (1/2 x 25 mg) PO QAM Edema 02/24/23 02/14/24 02/14/24 Rx #45 tabs telmisartan 80 mg tablet 80 mg PO QAM PRN Blood Pressure 02/24/23 02/14/24 02/14/24 Rx #90 tabs estradiol 0.5 mg tablet 0.5 mg PO QDAY #30 tabs 09/17/23 02/14/24 02/13/24 Rx metoprolol succinate 100 mg 100 mg PO BEDTIME Blood Pressure 09/17/23 02/14/24 02/13/24 History tablet,extended release 24 hr progesterone micronized 100 mg 100 mg PO BEDTIME #30 caps 09/17/23 02/14/24 02/13/24 Rx capsule (Prometrium) Allergies Allergy/AdvReac Type Severity Reaction Status Date / Time No Known Allergies Allergy Verified 02/14/24 13:36 [facility] Anesthesia Medical History (Updated 10/15/23 @ 15:37 by Alan Kelly MD) Uterine fibroid Major depressive disorder, single episode, severe Drug overdose intentional Iron deficiency anemia Uterine hypertrophy GERD (gastroesophageal reflux disease) Abnormal uterine bleeding (AUB) Surgical History (Updated 09/17/23 @ 14:24 by Nithya Raya APN, NP) Status post hysteroscopic polypectomy (~08/25/23) with D&C-- benign polyp and currettings; Robin H/O tubal ligation (1992) History of appendectomy (2009) Family History (Updated 08/12/23 @ 13:53 by Anna Hough LPN) Family/Other Breast cancer Maternal aunt Colon cancer Maternal aunt History of kidney cancer Maternal aunt Diabetes Paternal aunt Mother Cervical cancer History of kidney cancer Hypertension Father Lung cancer Hypertension Other Lung disease Denies family history of Ovarian cancer Prostate cancer Heart disease Psychiatric illness Thyroid disease Stroke Female Reproductive History Date of last menstrual period: 02/14/23 Data Anesthesia 02/14/24 13:55 02/14/24 13:55 Short CBC 02/14/24 Range/Units 13:55 WBC 9.75 (3.29-11.43) 10^3/uL Hgb 12.20 (11.27-16.99) g/dL Hct 37.7 (36-47) % MCV 85.7 (85-98) fl Plt Count 227 (157-399) 10^3/cmm Neut % (Auto) 69.0 % Neut # (Auto) 6.72 (1.8-7.7) 10^3/uL Cardiac Studies: 2 No Data to Display
[2024-02-14 14:16] LABS: Alanine Aminotransferase 16 U/L (0-33); Albumin Level 4.2 g/dL (3.5-5.2); Alkaline Phosphatase 104 U/L (35-105); Anion Gap 13.3 (5-19); Aspartate Amino Transferase 17 U/L (0-32); Blood Urea Nitrogen 14 mg/dL (6-20); Carbon Dioxide 26 mmol/L (22-29); Chloride 105 mmol/L (98-107); Globulin 2.6 g/dL (1.3-4.6); Glomerular Filtration Rate 87.9 mL/min (90-130); Glucose 108 mg/dL (65-115); Osmolality Calculated 291 mOsm/kg (285-295); Potassium 4.3 mmol/L (3.5-5.1); Sodium 140 mmol/L (136-145); Total Bilirubin 0.2 mg/dL (0.15-1.2); Total Protein 6.8 g/dL (6.6-8.7)
[2024-02-14 14:19] LABS: Charge for UA Resulting for Rev
[2024-02-14 14:22] LABS: Bilirubin Urine Negative (Negative); Blood Urine Trace (Negative); Glucose Urine UA Negative (Normal); Ketones Urine Negative (Negative); Leukocyte Esterase Urine Negative (Negative); Nitrate Urine Negative (Negative); Protein Urine Negative (Negative); Specific Gravity, Urine 1.028 (1.005-1.030); Urine Appearance Clear (CLEAR); Urine Color Yellow (Yellow); pH Urine 5.5 (5-7)
[2024-02-14 14:25] LABS: Bacteria Urine 1+ /hpf; Hyaline Casts Urine 0.81 /lpf
[2024-02-22] VITALS (16 sets, daily range): BP systolic 112–193; BP diastolic 71–106; PULSE 42–81; RESP 11–69; TEMP 36.2–36.9; O2SAT 92–99
[2024-02-22] MEDS: sodium chloride 0.9% 500 ML IV (06:23)
[2024-02-22] MEDS: sodium chloride 0.9% 1,000 ML 30 ML IV (06:29)
[2024-02-22] MEDS: scopolamine 1.5 Patch 1 PATCH TRANSDERMA (06:30)
--- NOTE | 2024-02-22 06:30 | P.ANESUD_ITS ---
Pre-Anesthetic Update Pre-Anesthetic Assessment: Date of Surgery/Procedure: 02/22/24 Preop Constance gnosis: uterine fibroid, cystocele, stress urinary incontinence Proposed Procedure: Operation Date: 02/22/24 07:00 Proposed Procedures p Total Vaginal Hysterectomy 11097, 76537, 99367, N81.10, N39.3(Not Applicable) - MD batool Hall Salpingo-Oophorectomy (Vaginal)(Bilateral) - MD batool Hall Anterior Repair Anterior Colporrhaphy(Not Applicable) - Alan Kelly MD s Sling Single Incision Sling(Not Applicable) - Alan Kelly MD Last Intake: Intake Last Liquid Date 02/21/24 Last Liquid Time 23:30 Last Solid Date 02/21/24 Last Solid Time 21:00 Vitals: Temperature 97.2 F L 02/22/24 06:14 Temperature Source Temporal Artery S can 02/22/24 06:14 Pulse Rate 55 L 02/22/24 06:14 Respiratory Rate 18 02/22/24 06:14 Blood Pressure 193/106 02/22/24 06:14 Blood Pressure Shanta n 135 02/22/24 06:14 Pulse Oximetry 98 02/22/24 06:14 Oxygen Delivery Me thod Room Air 02/22/24 06:14 Exam: Pre-Anes Outpt Exam: alert, oriented x 3, clear to auscultation bilaterally and regular rate & rhythm Other Pertinent Information: Other Pertinent Information: No prior issues with anesthesia NPO since midnight Hypertension, on numerous meds. Preop BP 193/106. Patient states that it is normally controlled with home meds Patient denies any pulmonary issues Labs reviewed and acceptable for surgery Edentulous Plan for general anesthesia Cardiac Studies: No Data to Display
[2024-02-22] MEDS: ceFOXitin 2,000 mg SDV 2000 MG IVP (06:37)
--- NOTE | 2024-02-22 06:58 | W.PM.OPSUD ---
Surgery/Procedure H&P Update DATE OF PROCEDURE: February 22, 2024 DATE H&P PERFORMED: 02/04/24 H&P UPDATE INFORMATION: I have reviewed H&P completed within last 30 days, I have examined patient prior to procedure and No changes to prior documentation PREOP DIAGNOSIS: uterine fibroid, cystocele, stress urinary incontinence PLANNED PROCEDURE: Operation Date: 02/22/24 07:00 Proposed Procedures p Total Vaginal Hysterectomy 45393, 30093, 40152, N81.10, N39.3(Not Applicable) - Alan Kelly MD s Salpingo-Oophorectomy (Vaginal)(Bilateral) - Alan Kelly MD s Anterior Repair Anterior Colporrhaphy(Not Applicable) - Alan Kelly MD s Sling Single Incision Sling(Not Applicable) - Aaln Kelly MD
[2024-02-22 07:10] LABS: OR HCG Qualitative Urine Negative (Negative)
[2024-02-22] MEDS: lidocaine-epi 2% PF 1:200,000 20 mL SDV INJECTION (08:03)
--- NOTE | 2024-02-22 09:17 | P.OP_ITS ---
Operative Report Date of procedure: February 22, 2024 Pre-op diagnosis: Uterine fibroid Cystocele Urinary stress incontinence Post-op diagnosis: same Procedure done: Total vaginal hysterectomy with bilateral salpingo-oophorectomy Anterior colporrhaphy augmented with allograft Mid urethral sling Cystoscopy Implants: Coloplast Altis sling Coloplast dermis allograft Specimens removed/disposition: Uterus left and right fallopian tube Surgeon: Alan Kelly MD Estimated blood loss (mL): 100 IV fluids (mL): 800 Urine output (mL): 200 Complications: None Procedure: After informed consent, the patient was taken to the operating room where general anesthesia was administered. She was placed in the dorsal lithotomy position and prepped and draped in sterile fashion. Pre-Procedure Time-Out verifying the correct patient identity, correct procedure verified with consent, correct site and side, correct patient position, availability of correct implants and any special equipment or requirements was performed and acknowledge by the OR team. A weighted speculum was placed in the posterior vaginal wall and the right-angle retractor used to visualize the cervix. The cervix was grasped across the anterior lip with a single-toothed tenaculum and circumferentially infiltrated with 2% lidocaine with epinephrine at this time. The cervix was circumferentially excised with the scalpel. The vaginal mucosa was dissected superiorly with sharp dissection. The anterior peritoneal reflection was identified, and it was entered with Metzenbaum scissors. A posterior colpotomy was made through the cul-de-sac space. The posterior peritoneum was identified in similar fashion and Metzenbaum scissors were used to enter the cul-de-sac. At this time, the vaginal retractor was adjusted, advanced posteriorly into the cul-de-sac. At this time, the left and right uterosacral ligaments were isola kim and ligated with 0 Vicryl. Inoperative flap was placed to isolate bowel and the posterior blade of the vaginal retractor was reinserted. The LigaSure device was then used in a serial fashion up through the cardinal ligaments bilaterally. Finally, the uterine arteries were cross-clamped, cut, and ligated with the LigaSure device. LigaSure device was then used up through the broad ligaments s uperiorly and finally the uterus was rotated posteriorly. The left and right tubes were then cross-clamped and ligated with LigaSure device. The uterus was excised and submitted for pathologic evaluation. No other abnormalities were noted in the pelvic cavity. Tag sutures had been left on the remnants of the uterosacral ligaments. The right uterosacral ligament tag was placed under traction to identify the remnants of the right uterosacral ligament. A#0 Vicryl suture was placed to the proximal right uterosacral ligament and sutured to the anterior and posterior pelvic fascia beneath the vaginal cuff on the right side. Identical process was performed on the left, although some difficulty was encountered in identifying and actually suturing through the attenuated left uterosacral ligament. Both these sutures were tied to elevate the vaginal cuff. The remaining vaginal cuff mucosa and anterior and posterior fascia were then closed. At this time, instruments were removed from the patient's abdominopelvic cavity. Vaginal cuff closure and peritoneum were incorporated into one layer with 0 Vicryl suture in a continuous running interlocking fashion. Hemostasis was noted to be achieved. A vertical midline incision was made beneath the midurethra, nearly 1.5 cm length. Careful submucosal dissection was performed bilaterally up to the interior portion of the inferior pubic ramus. The insertion of adductor longus tendon on the patient?s pubic ramus was identified as reference land mariama. Palpated the notch along the internal edge of ischiopubic ramus where the adductor longus tendon and the inferior pubic ramus meet. The Altis single incision sling (SIS) was selected. Then the needle of the SIS inserted aiming at the location of this notch. One of the integrated self-fixating tips place onto the needle by sliding it over the end of the needle. The needle/sling assembly was inserted toward the location of identified reference notch making sure that the flat of the handle is perpendicular to the desired path. The needle was tracked along the posterior surface of the ischiopubic ramus until the midline mariama on the mesh is approximately at the midline position under the urethra. The needle was removed and the same was repeated on the contralateral side until the appropriate sling tension under the urethra was achieved ensuring that the mesh lays flat. The needle was removed and vaginal incision was closed in a running interlocking fashion with 2-0 Vicryl. Then an anterior colporrhaphy was performed. The vaginal mucosa was then injected in the midline with normal saline. The vaginal mucosa was then injected in the midline with 2% lidocaine with epinephrine. The vaginal mucosa was scored in the midline with the Bovie approximately 1 cm medial to the urethral meatus to 1 cm distal to the vaginal cuff. This vaginal mucosa was then undermined and then incised in the midline with the Metzenbaum scissors. The lateral aspects of the vaginal mucosa were then grasped with the Allis clamps and the vaginal mucosa was then dissected off the underlying fascia with the Metzenbaum scissors. Again, there was noted to be quite a bit of oozing at the incision, which was controlled with cautery. After adequate dissection was performed, bilaterally. The Coloplast dermis allograft was modified at time of application to fit spacea, 3 x 3 cm piece . The Coloplast allograft was placed in front of cystocele ready to be implanted with the Basement Membrane facing the vagina mucosa. Suture is placed at distal end of graft and placed towards vaginal cuff. Final suture is placed on proximal portion of the graft to complete the placement overlying the bladder. Then Interrupted vertical mattress sutures of 0 Vicryl were used to elevate the cystocele superiorly. The excessive vaginal mucosa was then trimmed with the Metzenbaum scissors and the vaginal mucosa was then reapproximated in the running interlocking fashion with 2-0 Vicryl. Then the Nava catheter was removed and cystoscope was inserted. The bladder was filled with sterile water. Complete evaluation of the bladder mucosa was performed noting no lacerations, dimpling, tears, bleeding of the mucosa or muscular layers. Both ureteral orifices were identified. Prompt excretion of urine from both ureteral orifices was noted. Cystoscope was withdrawn. Nava catheter was then placed yielding clear sebastián urine. A vaginal packing with Premarin cream was placed to provide support during the healing process. The patient tolerated the procedure well and was taken to the recovery room in a stable condition. Sponge and needle counts were correct x3.
--- NOTE | 2024-02-22 09:55 | ANE.PACU2 ---
Inpatient post-anesthesia follow up: Airway intact: Yes Vital signs: Temperature 97.8 F Pulse Rate 64 Respiratory Rate 11 Blood Pressure 117/81 Pulse Oximetry 96 Oxygen Delivery Me thod Room Air Oxygen Flow Rate 8 Fraction of Inspir ed Oxygen Hydration adequate: Yes Nausea and vomiting: No Pain level: 1 Mental status: Baseline
[2024-02-22] MEDS: dextrose 5%-lactated ringers 1,000 ML 125 ML IV ×2 (10:31→19:11)
[2024-02-22] MEDS: HYDROcodone-acetaminophen 5-325 mg Tablet PO (13:33)
[2024-02-22] MEDS: ketorolac 30 mg/mL INJ IVP ×2 (16:23→22:09)
[2024-02-22] MEDS: PROGESTERONE MICRONIZED 100 MG 100 EACH PO (20:26)
[2024-02-23] MEDS: dextrose 5%-lactated ringers 1,000 ML 125 ML IV (03:02)
[2024-02-23 04:00] VITALS: BP 132/77; PULSE 45; RESP 14; TEMP 36.5; O2SAT 94
[2024-02-23] MEDS: ketorolac 30 mg/mL INJ IVP (04:18)
[2024-02-23 05:26] LABS: Hematocrit 36.1 % (36-47); Mean Corpuscular HGB Conc 31.6 g/dL (30-55); Mean Corpuscular Hemoglobin 27.2 pg (27-33); Mean Corpuscular Volume 86.2 fl (85-98); Mean Platelet Volume 10.5 fL (7.4-10.4); Platelet Count 274 10^3/cmm (157-399); Red Blood Count 4.19 10^6/uL (3.85-5.65); Red Cell Distribution Width 13.4 % (12.1-15.1); White Blood Count 19.84 10^3/uL (3.29-11.43)
--- NOTE | 2024-02-23 08:43 | PM.OBGYDC ---
Discharge Providers [employer] Date of Admission: 02/22/24 09:01 Date of Discharge: 02/23/24 Attending Provider at Admission: Alan Kelly MD Attending Provider at Discharge: Alan Kelly MD Primary Care Provider: Dylan Guzman MD Reason for Visit Reason for Visit: N81.10 Hospital Course Hospital Course Mrs. Dempsey 53-year-old female G2, P2, with a history of stress urinary incontinence associated to cystocele stage III and uterine fibroids. Admitted for planned total vaginal hysterectomy with bilateral salpingo-oophorectomy, anterior colporrhaphy augmented with allograft and single incision mid urethral sling. The procedures were performed without complication. Overnight observation was uneventful. PVR within normal limits. Tolerating diet well. Ambulating without difficulty. She was counseled regarding pelvic rest for 6 weeks (no sex, no tampons, no vaginal douches). Return to the emergency room if any fever, increased bleeding or pain. And advised to follow-up in 2 weeks Physical Exam Narrative: GA: Alert and oriented ?3. HEENT: WNL. Heart: Regular rate and rhythm. Lungs: Clear to auscultation bilaterally. Abdomen: Bowel sounds present, nontender. PERSONNEL MANAGER: spotting bleeding. Extremities: No edema, no cyanosis, no calves pain. Urinary Catheter Management: Nava: Cath Placed During This Visit: yes, but has since been removed by the nurse Reason for Continuing Indwelling Catheter: Decision to DC Catheter Urinary Catheter Date of Insertion: 02/22/24 Urinary Catheter Time of Insertion: 07:33 Date Urinary Catheter Removed: 02/23/24 Time Urinary Catheter Discontinued: 05:00 History History History 2 Term 2 0 Miscarriages/Ectopic 0 Living Children 2 Discharge Data Studies Completed and Pending Pending at discharge Category Date Time Status Pathology: Surgical [PTH] Routine Pth 02/22/24 08:44 Received Laboratory Results WBC 19.84 10^3/uL (3.29-11.43) H 02/23/24 05:15 RBC 4.19 10^6/uL (3.85-5.65) 02/23/24 05:15 Hgb 11.40 g/dL (11.27-16.99) 02/23/24 05:15 Hct 36.1 % (36-47) 02/23/24 05:15 MCV 86.2 fl (85-98) 02/23/24 05:15 MCH 27.2 pg (27-33) 02/23/24 05:15 MCHC 31.6 g/dL (30-55) 02/23/24 05:15 RDW 13.4 % (12.1-15.1) 02/23/24 05:15 Plt Count 274 10^3/cmm (157-399) 02/23/24 05:15 MPV 10.5 fL (7.4-10.4) H 02/23/24 05:15 Neut % (Auto) 69.0 % 02/14/24 13:55 Lymph % (Auto) 21.9 % 02/14/24 13:55 [place] % (Auto) 5.6 % 02/14/24 13:55 Eos % (Auto) 2.4 % 02/14/24 13:55 Baso % (Auto) 0.6 % 02/14/24 13:55 Neut # (Auto) 6.72 10^3/uL (1.8-7.7) 02/14/24 13:55 Lymph # (Auto) 2.1 10^3/uL (0.8-4.8) 02/14/24 13:55 [place] # (Auto) 0.6 10^3/uL (0.2-0.9) 02/14/24 13:55 Eos # (Auto) 0.2 10^3/uL (0.0-0.8) 02/14/24 13:55 Baso # (Auto) 0.1 10^3/uL (0.0-0.1) 02/14/24 13:55 Nucleated RBC % (auto) 0 % 02/14/24 13:55 Nucleated RBCs # 0.0 /100WBC 02/14/24 13:55 Sodium 140 mmol/L (136-145) 02/14/24 13:55 Potassium 4.3 mmol/L (3.5-5.1) 02/14/24 13:55 Chloride 105 mmol/L (98-107) 02/14/24 13:55 Carbon Dioxide 26 mmol/L (22-29) 02/14/24 13:55 Anion Gap 13.3 (5-19) 02/14/24 13:55 BUN 14 mg/dL (6-20) 02/14/24 13:55 Creatinine 0.7 mg/dL (0.5-0.9) 02/14/24 13:55 GFR Calculation 87.9 mL/min (90-130) L 02/14/24 13:55 Glucose 108 mg/dL (65-115) 02/14/24 13:55 Calculated Osmolality 291 mOsm/kg (285-295) 02/14/24 13:55 Calcium 9.0 mg/dL (8.5-10.5) 02/14/24 13:55 Total Bilirubin 0.2 mg/dL (0.15-1.2) 02/14/24 13:55 AST 17 U/L (0-32) 02/14/24 13:55 ALT 16 U/L (0-33) 02/14/24 13:55 Alkaline Phosphatase 104 U/L (35-105) 02/14/24 13:55 Total Protein 6.8 g/dL (6.6-8.7) 02/14/24 13:55 Albumin 4.2 g/dL (3.5-5.2) 02/14/24 13:55 Globulin 2.6 g/dL (1.3-4.6) 02/14/24 13:55 Urine Color Yellow (Yellow) 02/14/24 14:05 Urine Appearance Clear (CLEAR) 02/14/24 14:05 Urine pH 5.5 (5-7) 02/14/24 14:05 Ur Specific [place] 1.028 (1.005-1.030) 02/14/24 14:05 Urine Protein Negative (Negative) 02/14/24 14:05 Urine Glucose (UA) Negative (Normal) 02/14/24 14:05 Urine Ketones Negative (Negative) 02/14/24 14:05 Urine Blood Trace (Negative) A 02/14/24 14:05 Urine Nitrate Negative (Negative) 02/14/24 14:05 Urine Bilirubin Negative (Negative) 02/14/24 14:05 Urine Urobilinogen 1.0 mg/dL (Negative) 02/14/24 14:05 Ur Leukocyte Esterase Negative (Negative) 02/14/24 14:05 Urine RBC 3-5 /hpf (0-2) 02/14/24 14:05 Urine WBC 6-10 /hpf (0-5) 02/14/24 14:05 Ur Squamous Epith Cells 11-20 /hpf (0-5) 02/14/24 14:05 Amorphous Sediment Not Reportable 02/14/24 14:05 Urine Bacteria 1+ /hpf (NONE) H 02/14/24 14:05 Hyaline Casts 0.81 /lpf 02/14/24 14:05 Urine HCG, Qual Negative (Negative) 02/22/24 06:24 Blood Type A Negative 02/22/24 06:24 Rho(D) Type Rh negative 02/22/24 06:24 Antibody Screen Negative 02/22/24 06:24 Vitals Last Vital Signs Temp 97.7 F 02/23/24 04:00 Pulse 45 L 02/23/24 04:00 Resp 14 02/23/24 04:00 BP 132/77 02/23/24 04:00 Pulse Ox 94 02/23/24 04:00 O2 Del Method Room Air 02/23/24 04:00 O2 Flow Rate 8 02/22/24 09:25 Results Labs OB ([facility]): Blood Type A Negative 02/22/24 Antibody Screen Negative 02/22/24 Hct 36.1 % (36-47) 02/23/24 Hgb 11.40 g/dL (11.27-16.99) 02/23/24 Rho(D) Type Rh negative 02/22/24 Plt Count 274 10^3/cmm (157-399) 02/23/24 TSH 1.63 uIU/mL (0.27-4.20) 09/17/23 Free T4 1.08 ng/dL (0.82-1.77) 09/08/21 FSH 57.3 mIU/mL 09/17/23 Total Estradiol 5.0 pg/mL 09/17/23 HCG, Qual Negative (Negative) 12/18/22 Urine Opiates Screen Negative ng/mL (Negative) 12/18/22 Ur Barbiturates Screen Negative ng/mL (Negative) 12/18/22 Ur Phencyclidine Scrn Negative ng/mL (Negative) 12/18/22 Ur Amphetamines Screen Negative ng/mL (Negative) 12/18/22 U Benzodiazepines Scrn Negative ng/mL (Negative) 12/18/22 Urine Cocaine Screen Negative ng/mL (Negative) 12/18/22 U Marijuana (THC) Screen Negative ng/mL (Negative) 12/18/22 Micro Urine Specimen 08/24/23 Pap Smear Interpret See note 07/08/23 Prolactin 6.87 ng/mL (4.8-23.3) 09/17/23 Discharge Plan Discharge Patient Disposition: Home Condition: Stable Prescriptions: New hydrocodone-acetaminophen 5-325 mg tablet 1 tab PO Q4H PRN (Reason: pain) Qty: 20 0RF acetaminophen 325 mg capsule 325 mg PO Q4H PRN (Reason: fever or postoperative pain) Qty: 60 0RF docusate sodium [Colace] 100 mg capsule 100 mg PO BID Qty: 30 0RF ibuprofen 800 mg tablet 800 mg PO TID PRN (Reason: pain) Qty: 60 0RF nitrofurantoin macrocrystal 100 mg capsule 100 mg PO BID 3 Days Qty: 6 0RF Rx Instructions: must administer with a meal/food Continued metoprolol succinate 100 mg tablet extended release 24 hr 100 mg PO BEDTIME amlodipine 10 mg tablet 10 mg PO .qhs Qty: 90 1RF hydrochlorothiazide 25 mg tablet 12.5 mg PO QAM Qty: 45 1RF telmisartan 80 mg tablet 80 mg PO QAM PRN (Reason: Blood Pressure) Qty: 90 1RF estradiol 0.5 mg tablet 0.5 mg PO QDAY Qty: 30 2RF Rx Instructions: Take in conjunction with Prometrium progesterone micronized [Prometrium] 100 mg capsule 100 mg PO BEDTIME Qty: 30 2RF Rx Instructions: Take in conjunction with estradiol Discharge Orders: Discharge Order (Routine); Ordered 02/23/24 Ordered By: Alan Kelly Referrals: Alan Kelly MD [Physician] - 2 weeks Discharge Diet: Usual diet Discharge Activity: Limit activity as instructed Patient Instructions: Urinary Bladder Suspension (DC), Acute Wound Care (DC), Salpingo-Oophorectomy (GEN), Vaginal Hysterectomy (DC), Anterior Vaginal Repair (DC), OB Discharge Report, OB Food/Drug Interaction Guide, Opioid Safety, Post Anesthesia Care Activity Restrictions/Additional Instructions: 1. Please call [facility] on next working day to make your post-operative appointment in 2 weeks. 2. Please stay home until you come back to the clinic on first post-hospatilization check up. 3. Please follow instructions on your medications CAREFULLY. 4. If you have abdominal incision, do not cover it unless dressing is necessary because of drainage. OK to shower, but avoid bath. Leave steri-strips until they fall off. If they are still on one week after surgery, you may remove them. 5. If you had vaginal surgery or vaginal repair, Dr. Kelly may instruct you to take SITZ bath. 6. Yellow, blood tinged odorous vaginal discharge is usually normal after hysterectomy or vaginal surgeries. 7. No SEXUAL INTERCOURSE, tampons, or douches until you are completely released from the post-operative care. 8. Avoid constipation by eating right and maybe using some Metamucil or Milk of Magnesia. 9. All prescription refills are given during the working hours. Please do no wait till it runs out. Call the clinic at [phone] before your medication runs out. The clinic will get in touch with your doctor to prescribe medications if necessary. 10. Please remain within 40 mile radius from our hospital because emergencies do happen now and then during the post-operative period. 11. If you have stairs at home, take one step at a time slowly and minimize the number of trips. It helps to stay in one floor for the next few days. No lifting except what you can lift by one hand until you are released from the post-operative care. 12. Driving is discouraged until you are well healed. It may be 3-4 weeks before you feel strong enough to drive. You should be able to turn and look through the rear window without pain and you should be able to push the brake pedal very hard without pain before you drive. No fast rules, but SAFETY should be your primary concern. DO NOT drive if you are on sedating medications such as narcotics. 13. Call the clinic (during working hours) to make urgent appointment or go to the Emergency room, if any of the following occurs: i. Vaginal bleeding becomes heavy, more than a period. ii. Incision becomes red and sore, or drains pus. iii. Your TEMPERATURE is over 100.4F or you have chill. iv. IV site becomes red and swollen (a little ``knot?? is usually OK) v. Persistent nausea and vomiting vi. Persistent constipation or diarrhea vii. Rash or allergic reaction to medications. Discharge Attestations [employer] Time Spent in Discharge Care*: greater than 30 min Coding Level of Care Code Acute Code for Chg Maggie
[2024-02-23] MEDS: estradiol 1 mg Tablet 0.5 MG PO (09:36)
[2024-02-23] MEDS: hydroCHLOROthiazide 25 mg Tablet 12.5 MG PO (09:36)
[2024-02-23] MEDS: docusate sodium 100 mg Capsule PO (09:37)
[2024-02-23] MEDS: ibuprofen 800 mg tablet PO (09:37)
[2024-02-23 09:40] VITALS: BP 150/90; PULSE 44; RESP 16; TEMP 36.4
== END 2024-02-23 10:45 | disposition home or self-care (01) ==
LOC: OBGYN 09:06
PROVIDERS: Anesthesiology; Admitting Provider Obstetrics & Gynecology; PCP Family Medicine; Visit Provider Obstetrics & Gynecology
PROC: (CPT 57240; principal; 2024-02-22 07:00)
PROC: (CPT 58720; 2024-02-22 07:00)
PROC: 0JQC0ZZ Repair Pelvic Region Subcutaneous Tissue and Fascia, Open Approach (ICD-10-PCS; CPT 57240; 2024-02-22 07:00)
PROC: (CPT 57288; 2024-02-22 07:00)
DX: D25.9 Leiomyoma of uterus, unspecified (principal); N81.10 Cystocele, unspecified; N39.3 Stress incontinence (female) (male); I10 Essential (primary) hypertension; F32.A Depression, unspecified
CPT/HCPCS: 57240; 57288; 58262; 36415; 51798; 80053; 81003; 81015; 81025; 85025; 85027; 86850; 86900; 88307; C1713; C1762; G0378; J0694; J1100; J1200; J1885; J2250; J2371; J2405; J2704; J2710; J3010; J3490; J7030; J7040; J7121; J8499

== ENCOUNTER 2024-10-16 06:00 | Outpatient (CLI) | payer OTHER, SELFPAY | END 2024-10-16 06:01 | disposition home or self-care (01) | LOC: LAB 10-17 06:19 | PROVIDERS: PCP Family Medicine; Visit Provider Family Medicine | DX: Z13.6 Encounter for screening for cardiovascular disorders (principal) | CPT/HCPCS: 80053; 80061; 83721; 84439; 84443; 85025 ==

== ENCOUNTER 2024-10-19 13:42 | Outpatient (CLI) | payer OTHER, SELFPAY ==
--- NOTE | 2024-10-19 14:00 | MM_ITS ---
WS: [id number] BILATERAL 3D TOMOSYNTHESIS DIGITAL SCREENING MAMMOGRAPHY WITH CAD CLINICAL INFORMATION: screening HISTORY: Screening mammogram. No current complaints. COMPARISON: 2022 TECHNIQUE: Bilateral CC and MLO views. FINDINGS: Scattered fibroglandular densities bilaterally. No suspicious focal mass, asymmetry, calcifications, or architectural distortion. No evidence of malignancy. Vascular calcification. Incidental punctate calcifications. MM/MM scr tomosynthesis [id number] IMPRESSION: DENSITY: There are scattered areas of fibroglandular density. BI-RADS: 2 - Benign. FOLLOW UP: 1 Year Follow-up Recommend return to annual screening mammography.
== END 2024-10-19 13:43 | disposition home or self-care (01) ==
PROVIDERS: PCP Family Medicine; Visit Provider Family Medicine
DX: Z12.31 Encounter for screening mammogram for malignant neoplasm of breast (principal); R92.323 Mammographic fibroglandular density, bilateral breasts; R92.1 Mammographic calcification found on diagnostic imaging of breast
CPT/HCPCS: 77063; 77067; 80053; 80061; 83721; 84439; 84443; 85025

== ENCOUNTER 2025-01-19 12:33 | Outpatient (CLI) | payer OTHER, SELFPAY ==
--- NOTE | 2025-01-19 | ECG_ITS ---
[employer] Test Date: 2025-01-19 Pat Name: Steph Michel Department: Room: Gender: Female [employer]: : 1970 Requested By: Dylan Guzman Order Number: [id number] Loaiza MD: Mark Owen M.D. Interpretive Statements LEXISCAN SESTAMIBI STRESS TEST Procedure: At the baseline, the blood pressure was 130/72 mmHg with a heart rate of 81 bpm. The electrocardiogram showed normal sinus rhythm, normal axis with poor R wave progression and minor nonspecific ST-T wave abnormality. The Lexiscan was infused over a period of 20 seconds. A total of 0.4 mg of Lexiscan was infused. The stress phase was continued for a total of 5 minutes. Heart rate was at the end of stress phase was 85 bpm and a blood pressure of 133/71 mmHg. The EKG at the peak infusion revealed normal sinus rhythm with no significant ST-T wave changes. Sestamibi was injected 20 seconds after the Lexiscan infusion. Blood pressure at the end of recovery phase was 137/68 mmHg with a heart rate of 87 bpm. Conclusion: 1. Normal EKG response to Lexiscan infusion 2. No Lexiscan induced chest pain or cardiac arrhythmia. 3. Normal blood pressure and heart rate response. 4. Nuclear myocardial perfusion scan pending; see separate report. Electronically Signed On 01-21-2025 11:35:03 CDT by Mark Owen M.[email or web address]
[2025-01-19 12:41] VITALS: BMI 28.7
[2025-01-19 13:20] VITALS: BP 162/95; PULSE 91
== END 2025-01-19 12:34 | disposition home or self-care (01) ==
LOC: CDL 12:34
PROVIDERS: PCP Family Medicine; Visit Provider Family Medicine
DX: I25.10 Atherosclerotic heart disease of native coronary artery without angina pectoris (principal)
CPT/HCPCS: 93017

== ENCOUNTER → 2025-03-29 10:58 | Outpatient (BNVA) | payer OTHER, SELFPAY | PROVIDERS: PCP Family Medicine; Visit Provider Family Medicine | DX: R39.9 Unspecified symptoms and signs involving the genitourinary system (principal) | CPT/HCPCS: 81000 ==

== ENCOUNTER → 2025-05-30 15:05 | Outpatient (BNVA) | payer OTHER, SELFPAY | PROVIDERS: PCP Family Medicine; Visit Provider Family Medicine | DX: I25.10 Atherosclerotic heart disease of native coronary artery without angina pectoris (principal) | CPT/HCPCS: 80053; 80061 ==